=== PATIENT | female | born 1995 | race Caucasian/White ===

== ENCOUNTER 2016-12-18 01:42 | Emergency (ER) | payer MEDICAID ==
--- NOTE | 2016-12-18 02:24 | EDM.PDOC ---
ED HPI GENERAL MEDICAL PROBLEM - General Chief Complaint: Drug or Alcohol Abuse Stated Complaint: [facility] Time Seen by Provider: 12/18/16 01:42 - History of Present Illness INITIAL COMMENTS - FREE TEXT/NARRATIVE: 21-year-old female brought in by EMS who was found unresponsive. Patient is now awake alert oriented x3. The patient according to eye witnesses was acting a little goofy after using some cocaine. She stumbled around and passed out. Initially had some involuntary movements her significant other started CPR. When EMS arrived she was cyanotic she was given a dose of Narcan and immediately woke up. She was brought into the emergency room. 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 She states that she uses marijuana on intermittent basis. This evening after work she had a few drinks and wanted to try some cocaine. The patient's only complaint at this time is that of a significant headache. Headache Pain Score (Numeric/FACES): 7 - Related Data Allergies Allergy/AdvReac Type Severity Reaction Status Date / Time No Known Allergies Allergy Verified 12/18/16 01:46 Past Medical History Respiratory History: Reports: Asthma Musculoskeletal History: Reports: Fracture Psychiatric History: Reports: Anxiety - Past Surgical History HEENT Surgical History: Reports: Tonsillectomy Social & Family History - Tobacco Use Smoking Status *Q: Current Every Day Smoker Years of Tobacco use: 10 Packs/Tins Daily: 0.5 Second Hand Smoke Exposure: No - Alcohol Use Days Per Week of Alcohol Use: 1 Number of Drinks Per Day: 2 Total Drinks Per Week: 2 - Recreational Drug Use Recreational Drug Use: Yes Drug Use in Last 12 Months: Yes Recreational Drug Type: Reports: Cocaine, Methamphetamine Recreational Drug Use Frequency: Binges Recreational Drug Last Use: last week ED ROS GENERAL - Review of Systems Review Of Systems: See Below Constitutional: Reports: no symptoms HEENT: Reports: No symptoms Respiratory: Reports: No Symptoms Cardiovascular: Reports: No symptoms Endocrine: Reports: no symptoms GI/Abdominal: Reports: No symptoms : Reports: no symptoms Musculoskeletal: Reports: no symptoms. Denies: neck pain Neurological: Reports: Headache. Denies: Confusion, Dizziness Psychiatric: Denies: Agitation, Anxiety, Confusion, Depression, Hallucinations, Homicidal ideation, Mood lability, Suicidal ideation ED EXAM, GENERAL - Physical Exam Exam: See Below Exam Limited By: No limitations General Appearance: alert, no apparent distress Eye Exam: bilateral eye: EOMI, normal inspection, PERRL Ears: normal external exam, normal canal, hearing grossly normal, normal TMs Nose: normal inspection, normal mucosa Throat/Mouth: Normal inspection, Normal lips, Normal teeth, Normal gums, Normal oropharynx, Normal voice, No airway compromise Head: atraumatic, normocephalic, other (No obvious traumatic lesion) Neck: normal inspection, supple, non-tender, full range of motion. No: lymphadenopathy (L), lymphadenopathy (R) Respiratory/Chest: no respiratory distress, lungs clear, normal breath sounds Cardiovascular: regular rate, rhythm, no edema, no murmur GI/Abdominal: normal bowel sounds, soft, non tender, no organomegaly, no distention, no abnormal bruit, no mass Back Exam: normal inspection. No: CVA tenderness (L), CVA tenderness (R) Extremities: normal inspection, normal range of motion, non-tender, no pedal edema, normal capillary refill, other (Pelvis is stable) Neurological: alert, oriented, CN II-XII intact, normal cognition, normal gait, normal reflexes, no motor/sensory deficits, other (Cranial nerves II through XII grossly intact the patient is ambulatory without difficulty cerebellar testing is within normal limits all muscle groups in the upper extremities are equal and appropriate deep tendon reflexes the brachial radialis are equal and appropriate bilaterally) EKG INTERPRETATION EKG Date: 12/18/16 Rhythm: other (Normal sinus rhythm with a very subtle sinus arrhythmia age- appropriate) Hilbert: normal P-wave: present QRS: normal ST-T: normal QT: normal DC/PQ Interval: Normal intervals Comparison: NA - no prior EKG Course - Vital Signs Last Recorded V/S: Last Vital Signs Temp 35.9 C 12/18/16 01:46 Pulse 104 H 12/18/16 01:46 Resp 15 12/18/16 01:46 BP 124/81 12/18/16 01:46 Pulse Ox 100 12/18/16 01:46 - Orders/Labs/Meds Orders: Active Orders 24 hr Category Date Time Status EKG Documentation Completion [RC] STAT Care 12/18/16 02:00 Active Head wo Cont [CT] Stat Exams 12/18/16 02:16 Taken Labs: Laboratory Tests 12/18/16 12/18/16 12/18/16 Range/Units 02:24 02:24 02:55 WBC 9.67 (3.98-10.04) K/mm3 RBC 4.68 (3.98-5.22) M/mm3 Hgb 14.2 (11.2-15.7) gm/L Hct 41.7 (34.1-44.9) % MCV 89.1 (79.4-94.8) fl MCH 30.3 (25.6-32.2) pg MCHC 34.1 (32.2-35.5) g/dl RDW Std Deviation 41.4 (36.4-46.3) fL Plt Count 236 (182-369) K/mm3 MPV 10.6 (9.4-12.3) fl Neutrophils % (Manual) 68 H (40-60) % Band Neutrophils % 0 (0-10) % Lymphocytes % (Manual) 27 (20-40) % Atypical Lymphs % 0 % Monocytes % (Manual) 2 (2-10) % Eosinophils % (Manual) 1 (0.7-5.8) % Basophils % (Manual) 2 H (0.1-1.2) Platelet Estimate Adequate Plt Morphology Comment Normal RBC Morph Comment Normal Sodium 141 (136-145) mEq/L Potassium 3.8 (3.5-5.1) mEq/L Chloride 106 (98-107) mEq/L Carbon Dioxide 22 (21-32) mEq/L Anion Gap 16.8 H (5-15) BUN 8 (7-18) mg/dL Creatinine 0.9 (0.55-1.02) mg/dL Est Cr Clr Drug Dosing 84.67 mL/min Estimated GFR (MDRD) > 60 (>60) mL/min BUN/Creatinine Ratio 8.9 L (14-18) Glucose 110 H (74-106) mg/dL Calcium 8.3 L (8.5-10.1) mg/dL Total Bilirubin 0.3 (0.2-1.0) mg/dL AST 34 (15-37) U/L ALT 29 (14-59) U/L Alkaline Phosphatase 58 (46-116) U/L Total Protein 7.6 (6.4-8.2) g/dl Albumin 4.2 (3.4-5.0) g/dl Globulin 3.4 gm/dL Albumin/Globulin Ratio 1.2 (1-2) Urine Color (Yellow) Urine Appearance (Clear) Urine pH (5.0-8.0) Ur Specific [place] (1.005-1.030) Urine Protein (Negative) Urine Glucose (UA) (Negative) Urine Ketones (Negative) Urine Occult Blood (Negative) Urine Nitrite (Negative) Urine Bilirubin (Negative) Urine Urobilinogen (0.2-1.0) Ur Leukocyte Esterase (Negative) Urine RBC (0-5) /hpf Urine WBC (0-5) /hpf Ur Epithelial Cells (0-5) /hpf Urine Bacteria (FEW) /hpf Urine Mucus (FEW) /hpf Urine HCG, Qual Negative (NEGATIVE) Urine Opiates Screen (NEGATIVE) Ur Buprenorphine Scrn (NEGATIVE) Ur Oxycodone Screen (NEGATIVE) Urine Methadone Screen (NEGATIVE) Ur Propoxyphene Screen (NEGATIVE) Ur Barbiturates Screen (NEGATIVE) Ur Tricyclics Screen (NEGATIVE) Ur Phencyclidine Scrn (NEGATIVE) Ur Amphetamine Screen (NEGATIVE) U Methamphetamines Scrn (NEGATIVE) U Benzodiazepines Scrn (NEGATIVE) U Cocaine Metab Screen (NEGATIVE) U Marijuana (THC) Screen (NEGATIVE) Ethyl Alcohol 0.11 (0.00) gm% 12/18/16 12/18/16 Range/Units 02:55 02:55 WBC (3.98-10.04) K/mm3 RBC (3.98-5.22) M/mm3 Hgb (11.2-15.7) gm/L Hct (34.1-44.9) % MCV (79.4-94.8) fl MCH (25.6-32.2) pg MCHC (32.2-35.5) g/dl RDW Std Deviation (36.4-46.3) fL Plt Count (182-369) K/mm3 MPV (9.4-12.3) fl Neutrophils % (Manual) (40-60) % Band Neutrophils % (0-10) % Lymphocytes % (Manual) (20-40) % Atypical Lymphs % % Monocytes % (Manual) (2-10) % Eosinophils % (Manual) (0.7-5.8) % Basophils % (Manual) (0.1-1.2) Platelet Estimate Plt Morphology Comment RBC Morph Comment Sodium (136-145) mEq/L Potassium (3.5-5.1) mEq/L Chloride (98-107) mEq/L Carbon Dioxide (21-32) mEq/L Anion Gap (5-15) BUN (7-18) mg/dL Creatinine (0.55-1.02) mg/dL Est Cr Clr Drug Dosing mL/min Estimated GFR (MDRD) (>60) mL/min BUN/Creatinine Ratio (14-18) Glucose (74-106) mg/dL Calcium (8.5-10.1) mg/dL Total Bilirubin (0.2-1.0) mg/dL AST (15-37) U/L ALT (14-59) U/L Alkaline Phosphatase (46-116) U/L Total Protein (6.4-8.2) g/dl Albumin (3.4-5.0) g/dl Globulin gm/dL Albumin/Globulin Ratio (1-2) Urine Color Yellow (Yellow) Urine Appearance Clear (Clear) Urine pH 6.5 (5.0-8.0) Ur Specific [place] 1.020 (1.005-1.030) Urine Protein Negative (Negative) Urine Glucose (UA) 1+ H (Negative) Urine Ketones Negative (Negative) Urine Occult Blood Negative (Negative) Urine Nitrite Negative (Negative) Urine Bilirubin Negative (Negative) Urine Urobilinogen 0.2 (0.2-1.0) Ur Leukocyte Esterase Trace H (Negative) Urine RBC 0-5 (0-5) /hpf Urine WBC 0-5 (0-5) /hpf Ur Epithelial Cells 0-5 (0-5) /hpf Urine Bacteria Moderate H (FEW) /hpf Urine Mucus Few (FEW) /hpf Urine HCG, Qual (NEGATIVE) Urine Opiates Screen Negative (NEGATIVE) Ur Buprenorphine Scrn Negative (NEGATIVE) Ur Oxycodone Screen Negative (NEGATIVE) Urine Methadone Screen Negative (NEGATIVE) Ur Propoxyphene Screen Negative (NEGATIVE) Ur Barbiturates Screen Negative (NEGATIVE) Ur Tricyclics Screen Negative (NEGATIVE) Ur Phencyclidine Scrn Negative (NEGATIVE) Ur Amphetamine Screen Presumptive positive H (NEGATIVE) U Methamphetamines Scrn Negative (NEGATIVE) U Benzodiazepines Scrn Negative (NEGATIVE) U Cocaine Metab Screen Negative (NEGATIVE) U Marijuana (THC) Screen Presumptive positive H (NEGATIVE) Ethyl Alcohol (0.00) gm% - Re-Assessments/Exams Free Text/Narrative Re-Assessment/Exam: 12/18/16 05:46 Patient has continued to do well with observation she was allowed to go outside with your staff to smoke one time she is ambulatory without any balance problems. She is resting at this time. It was decided best to observe the patient for a while and the patient indeed did coke it should not cause depression of her respirations it is possible that she fell and bumped her head and was possibly knocked out however head injurys do not respond to Narcan. Blood alcohol is 0.11 drug screen positive for methamphetamine and marijuana. 12/18/16 06:18 The patient continues to maintain stability and would like to go home. Her vital signs are stable except for mild tachycardia, she is alert oriented and ambulatory. Departure - Departure Time of Disposition: 06:22 Disposition: Home, Self-Care 01 Clinical Impression: Accidental overdose, Alcohol intoxication, Head injury Additional Instructions: Return to the emergency room with any questions or problems. Followup in the clinic this next week for recheck if needed. No drugs whatsoever. Avoid alcohol. Push lots of fluids. - My Orders Last 24 Hours: My Active Orders 12/18/16 02:00 EKG Documentation Completion [RC] STAT 12/18/16 02:16 Head wo Cont [CT] Stat - Assessment/Plan Last 24 Hours: My Active Orders 12/18/16 02:00 EKG Documentation Completion [RC] STAT 12/18/16 02:16 Head wo Cont [CT] Stat
[2016-12-18 06:43] VITALS: BP 128/69
--- NOTE | 2016-12-18 09:26 | CT ---
Head CT Technique: Multiple axial sections through the brain were obtained. Intravenous contrast was not utilized. Comparison: No previous head CT exam, previous MRI brain dated 08/23/13 is available. Findings: Ventricles along with basal cisterns and sulci over the convexities are within normal limits for the patient's age. No abnormal parenchymal densities are seen. No evidence of intracranial hemorrhage. No midline shift or mass effect is seen. Bone window settings were reviewed which show the visualized sinuses to appear clear. No discrete calvarial abnormality is seen. Impression: 1. No abnormality is identified on noncontrast head CT study. No significant change appreciated from prior MRI brain. Diagnostic code #1 I agree with preliminary report issued by [id number] (preliminary report dictated on 12/18/16, 4:17 AM Central Time)
== END 2016-12-18 06:42 | disposition home or self-care (01) ==
LOC: JD.ED 01:42 → SUPCPDRO 01:42 → JD.ED 06:42
DX: T40.5X1A Poisoning by cocaine, accidental (unintentional), initial encounter (principal); F10.129 Alcohol abuse with intoxication, unspecified; S09.90XA Unspecified injury of head, initial encounter; W17.89XA Other fall from one level to another, initial encounter; F12.90 Cannabis use, unspecified, uncomplicated; F17.200 Nicotine dependence, unspecified, uncomplicated; J45.909 Unspecified asthma, uncomplicated; F41.9 Anxiety disorder, unspecified
CPT/HCPCS: 36415; 70450; 80053; 80306; 81001; 81025; 85025; 93005; 99285; G0480

== ENCOUNTER 2017-10-25 10:04 | Inpatient (IN) | payer MEDICAID ==
[2017-10-25] MEDS ORDERED: Lidocaine 1% 50 ML MDV INJECT PRN (10:57)
[2017-10-25] MEDS ORDERED: Ondansetron 4 MG/2 ML SDV IVPUSH PRN (10:57)
[2017-10-25] MEDS ORDERED: Nalbuphine 20 MG/1 ML Amp IVPUSH PRN (10:57)
[2017-10-25] MEDS ORDERED: Oxytocin/Lactated Ringers 10 UNIT/1,000 ML BAG IV SCH ×2 (11:00)
[2017-10-25] MEDS: Lactated Ringers 1,000 ML IV SCH (11:20)
--- NOTE | 2017-10-25 12:16 | PCM.LDHP ---
L&D History of Present Illness - General Date of Service: 10/25/17 Admit Problem/Dx: Patient Status Order with Admit Dx/Problem 10/25/17 10:57 Patient Status [ADT] Routine Admission Diagnosis/Problem Admission Diagnosis/Problem Normal labor Source of Information: Patient History Limitations: Reports: No Limitations - History of Present Illness Introduction:: Patient is a 22 y/o at 40 6/7 wks presents for IOL for dates. Doing well since last seen in clinic. No contractions. No LOF or VB. Notes good FM from baby. - Related Data Allergies/Adverse Reactions: Allergies Allergy/AdvReac Type Severity Reaction Status Date / Time No Known Allergies Allergy Verified 10/25/17 10:57 Home Medications: Home Meds Acyclovir 400 mg PO BID 10/25/17 [History] Vit W-Ca,Fe,FA(<1 mg) [ Vitamins] 1 tab PO DAILY 10/25/17 [ History] hydrOXYzine Pamoate [Vistaril] 25 - 50 mg PO TID PRN 10/25/17 [History] Past Medical History Respiratory History: Reports: Asthma Genitourinary History: Reports: STD : 1 LMP (Approximate): Musculoskeletal History: Reports: Fracture Psychiatric History: Reports: Anxiety, Depression - Infectious Disease History Infectious Disease History: Reports: Herpes - Past Surgical History HEENT Surgical History: Reports: Tonsillectomy Social & Family History - Tobacco Use Smoking Status *Q: Current Every Day Smoker Years of Tobacco use: 10 Packs/Tins Daily: 0.5 Second Hand Smoke Exposure: No - Alcohol Use Alcohol Use History: No - Recreational Drug Use Recreational Drug Use: Yes Drug Use in Last 12 Months: Yes Recreational Drug Type: Reports: Marijuana/Hashish, Methamphetamine (Last use in 2014) H&P Review of Systems - Review of Systems: Review Of Systems: See Below General: Reports: No Symptoms Pulmonary: Reports: No Symptoms Cardiovascular: Reports: No Symptoms Gastrointestinal: Reports: No Symptoms Genitourinary: Reports: No Symptoms Musculoskeletal: Reports: No Symptoms Psychiatric: Reports: No Symptoms Neurological: Reports: No Symptoms L&D Exam - Exam Exam: See Below - Vital Signs Weight: 90.22 kg - OB Specific Contraction Intensity: Irritability Movement: Active Heart Tones: Present Heart Tones per Min: 150 Heart Rate (FHR) Variability: Moderate (6-25 bmp) Presentation: Right Occiput Posterior (ROP) - Grimes Score Grimes Score Cervix Position: Midposition Grimes Score Consistency: Soft Grimes Score Effacement: >80% Grimes Score Dilation: 1-2 cm Grimes Score 's Station: -2 Grimes Score Total: 8 - Exam General: Alert, Oriented, Cooperative Lungs: Clear to Auscultation, Normal Respiratory Effort Cardiovascular: Regular Rate, Regular Rhythm GI/Abdominal Exam: Soft, Non-Tender Genitourinary: Normal external exam Back Exam: Normal Inspection Extremities: Normal Inspection Skin: Warm, Dry, Intact - Patient Data Lab Results Last 24 hrs: Laboratory Results - last 24 hr 10/25/17 Range/Units 11:17 WBC 10.35 H (3.98-10.04) K/mm3 RBC 3.78 L (3.98-5.22) M/mm3 Hgb 10.9 L (11.2-15.7) gm/L Hct 32.6 L (34.1-44.9) % MCV 86.2 (79.4-94.8) fl MCH 28.8 (25.6-32.2) pg MCHC 33.4 (32.2-35.5) g/dl RDW Std Deviation 41.0 (36.4-46.3) fL Plt Count 124 L (182-369) K/mm3 MPV 11.4 (9.4-12.3) fl Neut % (Auto) 68.2 (34.0-71.1) % Lymph % (Auto) 21.4 (19.3-51.7) % [place] % (Auto) 8.3 (4.7-12.5) % Eos % (Auto) 1.3 (0.7-5.8) Baso % (Auto) 0.3 (0.1-1.2) % Neut # (Auto) 7.06 H (1.56-6.13) K/mm3 Lymph # (Auto) 2.22 (1.18-3.74) K/mm3 [place] # (Auto) 0.86 H (0.24-0.36) K/mm3 Eos # (Auto) 0.13 (0.04-0.36) K/mm3 Baso # (Auto) 0.03 (0.01-0.08) K/mm3 Result Diagrams: 10/25/17 11:17 - Problem List (1) Post-dates SNOMED Code(s): 31541604 ICD Code: O48.0 - POST-TERM Status: Acute Current Visit: Yes Qualifiers: Post-term type: 40-42 weeks gestation Qualified Code(s): O48.0 - Post-term (2) History of asthma SNOMED Code(s): 328933662 ICD Code: Z87.09 - PERSONAL HISTORY OF OTHER DISEASES OF THE RESPIRATORY SYSTEM Status: Acute Current Visit: Yes (3) Rh negative state in antepartum period SNOMED Code(s): 434021280 ICD Code: O09.899 - SUPERVISION OF OTHER HIGH RISK PREGNANCIES, UNSP TRIMESTER Status: Acute Current Visit: Yes (4) Anxiety and depression SNOMED Code(s): 710688027 ICD Code: F41.8 - OTHER SPECIFIED ANXIETY DISORDERS Status: Acute Current Visit: Yes (5) History of drug use SNOMED Code(s): 203171649 ICD Code: Z87.898 - PERSONAL HISTORY OF OTHER SPECIFIED CONDITIONS Status: Acute Current Visit: Yes Problem List Initiated/Reviewed/Updated: Yes Orders Last 24hrs: Active Orders 24 hr Category Date Time Status Patient Status [ADT] Routine ADT 10/25/17 10:57 Active Activity as Tolerated [RC] PFP Care 10/25/17 10:57 Active Communication Order [RC] ASDIRECTED Care 10/25/17 10:57 Active Notify Provider [RC] PFP Care 10/25/17 10:57 Active Notify Provider [RC] PRN Care 10/25/17 10:57 Active Vital Signs [RC] PER UNIT ROUTINE Care 10/25/17 10:57 Active Regular Diet [DIET] Diet 10/25/17 Lunch Active DRUG SCREEN, URINE [URCHEM] Routine Lab 10/25/17 12:15 Uncollected TYPE AND SCREEN [BBK] Stat Lab 10/25/17 11:17 Received Lactated Ringers [Ringers, Lactated] 1,000 ml Med 10/25/17 11:00 Active IV ASDIRECTED Lidocaine 1% [Xylocaine 1%] Med 10/25/17 10:57 Active 50 ml INJECT ONETIME PRN Nalbuphine [Nubain] Med 10/25/17 10:57 Active 10 mg IVPUSH Q2H PRN Ondansetron [Zofran] Med 10/25/17 10:57 Active 4 mg IVPUSH Q4H PRN Oxytocin/Lactated Ringers [Pitocin in LR 10 Units/1,000 Med 10/25/17 11:00 Active ML] 10 unit in 1,000 ml IV .CONTINUOUS Oxytocin/Lactated Ringers [Pitocin in LR 10 Units/1,000 Med 10/25/17 11:00 Active ML] 10 unit in 1,000 ml IV TITRATE Electronic Heart Tones Ext w TOCO [WOMSER] Oth 10/25/17 10:57 Ordered Routine Electronic Heart Tones Internal [WOMSER] Per Unit Oth 10/25/17 10:57 Ordered Routine Peripheral IV Insertion Adult [OM.PC] Routine Oth 10/25/17 10:57 Ordered Resuscitation Status Routine Resus Stat 10/25/17 10:57 Ordered Medication Orders Lactated Ringer's (Ringers, Lactated) 1,000 mls @ 100 mls/hr IV ASDIRECTED JAY Last Admin: 10/25/17 11:20 Dose: 100 mls/hr Oxytocin/Lactated Ringer's (Pitocin In Lr 10 Units/1,000 Ml) 10 unit in 1,000 mls @ 12 mls/hr IV TITRATE JAY; 2 MUNITS/MIN PRN Reason: Protocol Last Admin: 10/25/17 11:25 Dose: 2 munits/min, 12 mls/hr Oxytocin/Lactated Ringer's (Pitocin In Lr 10 Units/1,000 Ml) 10 unit in 1,000 mls @ 500 mls/hr IV .CONTINUOUS JAY Lidocaine HCl (Xylocaine 1%) 50 ml INJECT ONETIME PRN PRN Reason: perineal repair Nalbuphine HCl (Nubain) 10 mg IVPUSH Q2H PRN PRN Reason: Pain (moderate 4-6) Ondansetron HCl (Zofran) 4 mg IVPUSH Q4H PRN PRN Reason: Nausea/Vomiting Assessment/Plan Comment:: Patient is a 22 y/o at 40 6/7 wks who presents for IOL for dates * CBC and T&S * Given good starting point with cervical exam will proceed with pitocin for IOL and AROM when able * Pain management per patient preference * UDS on admission given history of drug use (last in 2014, has had negative testing in ). Cord segment after delivery * Anticipate
[2017-10-25] MEDS ORDERED: Bupivacaine/fentaNYL/NS 100 ML Bag EPIDUR SCH (14:00)
[2017-10-25] MEDS ORDERED: diphenhydrAMINE 50 MG/ML SDV IVPUSH PRN (14:00)
[2017-10-25] MEDS ORDERED: ePHEDrine 50 MG/ML SDV IVPUSH PRN (14:00)
[2017-10-25] MEDS ORDERED: fentaNYL 100 MCG/2 ML SDV EPIDUR PRN (14:00)
--- NOTE | 2017-10-25 19:03 | PCM.PREANE ---
Preanesthetic Assessment - Anesthesia/Transfusion/Family Hx Anesthesia History: Prior Anesthesia Without Reaction Family History of Anesthesia Reaction: No Transfusion History: No Prior Transfusion(s) - Review of Systems General: No Symptoms Pulmonary: No Symptoms Cardiovascular: No Symptoms Gastrointestinal: No Symptoms Neurological: No Symptoms Other: Reports: None - Physical Assessment Pulse: 98 O2 Sat by Pulse Oximetry: 100 Respiratory Rate: 17 Blood Pressure: 118/69 Temperature: 36.3 C Vital Signs: Last Vital Signs Temp 36.3 C 10/25/17 10:57 Pulse 91 10/25/17 10:57 Resp 17 10/25/17 10:57 BP 118/69 10/25/17 10:57 Pulse Ox 100 10/25/17 10:57 Height: 1.63 m Weight: 90.22 kg ASA Class: 2 Mental Status: Alert & Oriented x3 Airway Class: Mallampati = 1 Dentition: Reports: Normal Dentition Thyro-Mental Finger Breadths: 3 Mouth Opening Finger Breadths: 3 ROM/Head Extension: Full Lungs: Clear to Auscultation, Normal Respiratory Effort Cardiovascular: Regular Rate, Regular Rhythm - Lab Values: Laboratory Last Values WBC 10.35 K/mm3 (3.98-10.04) H 10/25/17 11:17 RBC 3.78 M/mm3 (3.98-5.22) L 10/25/17 11:17 Hgb 10.9 gm/L (11.2-15.7) L 10/25/17 11:17 Hct 32.6 % (34.1-44.9) L 10/25/17 11:17 MCV 86.2 fl (79.4-94.8) 10/25/17 11:17 MCH 28.8 pg (25.6-32.2) 10/25/17 11:17 MCHC 33.4 g/dl (32.2-35.5) 10/25/17 11:17 RDW Std Deviation 41.0 fL (36.4-46.3) 10/25/17 11:17 Plt Count 124 K/mm3 (182-369) L 10/25/17 11:17 MPV 11.4 fl (9.4-12.3) 10/25/17 11:17 Neut % (Auto) 68.2 % (34.0-71.1) 10/25/17 11:17 Lymph % (Auto) 21.4 % (19.3-51.7) 10/25/17 11:17 [place] % (Auto) 8.3 % (4.7-12.5) 10/25/17 11:17 Eos % (Auto) 1.3 (0.7-5.8) 10/25/17 11:17 Baso % (Auto) 0.3 % (0.1-1.2) 10/25/17 11:17 Neut # (Auto) 7.06 K/mm3 (1.56-6.13) H 10/25/17 11:17 Lymph # (Auto) 2.22 K/mm3 (1.18-3.74) 10/25/17 11:17 [place] # (Auto) 0.86 K/mm3 (0.24-0.36) H 10/25/17 11:17 Eos # (Auto) 0.13 K/mm3 (0.04-0.36) 10/25/17 11:17 Baso # (Auto) 0.03 K/mm3 (0.01-0.08) 10/25/17 11:17 Urine Opiates Screen Negative (NEGATIVE) 10/25/17 15:00 Ur Buprenorphine Scrn Negative (NEGATIVE) 10/25/17 15:00 Ur Oxycodone Screen Negative (NEGATIVE) 10/25/17 15:00 Urine Methadone Screen Negative (NEGATIVE) 10/25/17 15:00 Ur Propoxyphene Screen Negative (NEGATIVE) 10/25/17 15:00 Ur Barbiturates Screen Negative (NEGATIVE) 10/25/17 15:00 Ur Tricyclics Screen Negative (NEGATIVE) 10/25/17 15:00 Ur Phencyclidine Scrn Negative (NEGATIVE) 10/25/17 15:00 Ur Amphetamine Screen Negative (NEGATIVE) 10/25/17 15:00 U Methamphetamines Scrn Negative (NEGATIVE) 10/25/17 15:00 U Benzodiazepines Scrn Negative (NEGATIVE) 10/25/17 15:00 U Cocaine Metab Screen Negative (NEGATIVE) 10/25/17 15:00 U Marijuana (THC) Screen Negative (NEGATIVE) 10/25/17 15:00 Blood Type B NEGATIVE 10/25/17 11:17 Gel Antibody Screen Positive 10/25/17 11:17 - Allergies Allergies/Adverse Reactions: Allergies Allergy/AdvReac Type Severity Reaction Status Date / Time No Known Allergies Allergy Verified 10/25/17 10:57 - Anesthesia Plan Pre-Op Medication Ordered: None - Acknowledgements Anesthesia Type Planned: Epidural Pt an Appropriate Candidate for the Planned Anesthesia: Yes Alternatives and Risks of Anesthesia Discussed w Pt/Guardian: Yes Pt/Guardian Understands and Agrees with Anesthesia Plan: Yes PreAnesthesia Questionnaire Respiratory History: Reports: Asthma Gastrointestinal History: Reports: GERD Genitourinary History: Reports: STD [employer] History: Reports: Other (See Below) Other OB/BYN History: Hx of genital herpes and Chlamydia Musculoskeletal History: Reports: Fracture Other Musculoskeletal History: right arm Psychiatric History: Reports: Anxiety, Depression - Infectious Disease History Infectious Disease History: Reports: Herpes - Past Surgical History HEENT Surgical History: Reports: Tonsillectomy - SUBSTANCE USE Smoking Status *Q: Current Every Day Smoker Tobacco Use Within Last Twelve Months: Cigarettes Second Hand Smoke Exposure: No Days Per Week of Alcohol Use: 1 Number of Drinks Per Day: 2 Total Drinks Per Week: 2 Recreational Drug Use History: Yes Recreational Drug Type: Reports: Marijuana/Hashish, Methamphetamine (Last use in 2014) Recreational Drug Last Use: last week - HOME MEDS Home Medications: Home Meds Acyclovir 400 mg PO BID 10/25/17 [History] Vit W-Ca,Fe,FA(<1 mg) [ Vitamins] 1 tab PO DAILY 10/25/17 [ History] hydrOXYzine Pamoate [Vistaril] 25 - 50 mg PO TID PRN 10/25/17 [History] - CURRENT (IN HOUSE) MEDS Current Meds: Current Medications Diphenhydramine HCl (Benadryl) 25 mg IVPUSH Q6H PRN PRN Reason: Itching Ephedrine Sulfate (Ephedrine Sulfate) 5 mg IVPUSH ASDIRECTED PRN PRN Reason: HYPOTENTSION Fentanyl (Sublimaze) 100 mcg EPIDUR Q3H PRN PRN Reason: PAIN Last Admin: 10/25/17 18:54 Dose: 100 mcg Fentanyl/Bupivacaine HCl (Fentanyl/Bupivacaine/Ns 2 Mcg-0.125% 100 Ml) 100 ml EPIDUR ASDIRECTED JAY Last Admin: 10/25/17 18:55 Dose: 100 ml Lactated Ringer's (Ringers, Lactated) 1,000 mls @ 100 mls/hr IV ASDIRECTED JAY Last Admin: 10/25/17 11:20 Dose: 100 mls/hr Oxytocin/Lactated Ringer's (Pitocin In Lr 10 Units/1,000 Ml) 10 unit in 1,000 mls @ 12 mls/hr IV TITRATE JAY; 2 MUNITS/MIN PRN Reason: Protocol Last Titration: 10/25/17 18:00 Dose: 0 munits/min, 0 mls/hr Oxytocin/Lactated Ringer's (Pitocin In Lr 10 Units/1,000 Ml) 10 unit in 1,000 mls @ 500 mls/hr IV .CONTINUOUS JAY Lidocaine HCl (Xylocaine 1%) 50 ml INJECT ONETIME PRN PRN Reason: perineal repair Nalbuphine HCl (Nubain) 10 mg IVPUSH Q2H PRN PRN Reason: Pain (moderate 4-6) Ondansetron HCl (Zofran) 4 mg IVPUSH Q4H PRN PRN Reason: Nausea/Vomiting
--- NOTE | 2017-10-25 20:06 | PCM.PNLD ---
Labor Progress Note - VS & Meds Vital Signs: Last Vital Signs Temp 36.3 C 10/25/17 19:03 Pulse 98 10/25/17 19:03 Resp 17 10/25/17 19:03 BP 118/69 10/25/17 19:03 Pulse Ox 100 10/25/17 19:03 Active Medications: Current Medications Diphenhydramine HCl (Benadryl) 25 mg IVPUSH Q6H PRN PRN Reason: Itching Ephedrine Sulfate (Ephedrine Sulfate) 5 mg IVPUSH ASDIRECTED PRN PRN Reason: HYPOTENTSION Fentanyl (Sublimaze) 100 mcg EPIDUR Q3H PRN PRN Reason: PAIN Last Admin: 10/25/17 18:54 Dose: 100 mcg Fentanyl/Bupivacaine HCl (Fentanyl/Bupivacaine/Ns 2 Mcg-0.125% 100 Ml) 100 ml EPIDUR ASDIRECTED JAY Last Admin: 10/25/17 18:55 Dose: 100 ml Lactated Ringer's (Ringers, Lactated) 1,000 mls @ 100 mls/hr IV ASDIRECTED JAY Last Admin: 10/25/17 11:20 Dose: 100 mls/hr Oxytocin/Lactated Ringer's (Pitocin In Lr 10 Units/1,000 Ml) 10 unit in 1,000 mls @ 12 mls/hr IV TITRATE JAY; 2 MUNITS/MIN PRN Reason: Protocol Last Titration: 10/25/17 18:00 Dose: 0 munits/min, 0 mls/hr Oxytocin/Lactated Ringer's (Pitocin In Lr 10 Units/1,000 Ml) 10 unit in 1,000 mls @ 500 mls/hr IV .CONTINUOUS JAY Lidocaine HCl (Xylocaine 1%) 50 ml INJECT ONETIME PRN PRN Reason: perineal repair Nalbuphine HCl (Nubain) 10 mg IVPUSH Q2H PRN PRN Reason: Pain (moderate 4-6) Ondansetron HCl (Zofran) 4 mg IVPUSH Q4H PRN PRN Reason: Nausea/Vomiting - Uterine Contractions Uterine Monitoring Mode: External [place] Contraction Intensity: Moderate to Strong - Monitoring Monitor Mode: External Ultrasound Heart Rate (FHR) Baseline: 135 Heart Rate (FHR) Variability: Moderate (6-25 bmp) Accelerations: Present, 15x15 Decelerations: None Strip Review: Category I - Vaginal Exam Dilation (cm): 3-4 Effacement (Percent): 80 Station: -2 Cervical Position: Midposition - Labor Progress (Free Text) Labor Progress: Patient doing well. On 16 of pitocin. Not feeling much for contractions. AROM performed with release of scant amount of clear fluid
--- NOTE | 2017-10-25 20:14 | PCM.PNLD ---
Labor Progress Note - VS & Meds Vital Signs: Last Vital Signs Temp 36.3 C 10/25/17 19:03 Pulse 98 10/25/17 19:03 Resp 17 10/25/17 19:03 BP 118/69 10/25/17 19:03 Pulse Ox 100 10/25/17 19:03 Active Medications: Current Medications Diphenhydramine HCl (Benadryl) 25 mg IVPUSH Q6H PRN PRN Reason: Itching Ephedrine Sulfate (Ephedrine Sulfate) 5 mg IVPUSH ASDIRECTED PRN PRN Reason: HYPOTENTSION Fentanyl (Sublimaze) 100 mcg EPIDUR Q3H PRN PRN Reason: PAIN Last Admin: 10/25/17 18:54 Dose: 100 mcg Fentanyl/Bupivacaine HCl (Fentanyl/Bupivacaine/Ns 2 Mcg-0.125% 100 Ml) 100 ml EPIDUR ASDIRECTED JAY Last Admin: 10/25/17 18:55 Dose: 100 ml Lactated Ringer's (Ringers, Lactated) 1,000 mls @ 100 mls/hr IV ASDIRECTED JAY Last Admin: 10/25/17 11:20 Dose: 100 mls/hr Oxytocin/Lactated Ringer's (Pitocin In Lr 10 Units/1,000 Ml) 10 unit in 1,000 mls @ 12 mls/hr IV TITRATE JAY; 2 MUNITS/MIN PRN Reason: Protocol Last Titration: 10/25/17 18:00 Dose: 0 munits/min, 0 mls/hr Oxytocin/Lactated Ringer's (Pitocin In Lr 10 Units/1,000 Ml) 10 unit in 1,000 mls @ 500 mls/hr IV .CONTINUOUS JAY Lidocaine HCl (Xylocaine 1%) 50 ml INJECT ONETIME PRN PRN Reason: perineal repair Nalbuphine HCl (Nubain) 10 mg IVPUSH Q2H PRN PRN Reason: Pain (moderate 4-6) Ondansetron HCl (Zofran) 4 mg IVPUSH Q4H PRN PRN Reason: Nausea/Vomiting - Uterine Contractions Uterine Monitoring Mode: External [place] Contraction Intensity: Moderate to Strong - Monitoring Monitor Mode: External Ultrasound Heart Rate (FHR) Baseline: 135 Heart Rate (FHR) Variability: Moderate (6-25 bmp) Accelerations: Present, 15x15 Decelerations: None Strip Review: Category I - Vaginal Exam Dilation (cm): 8-9 Effacement (Percent): 90 Station: 0 Cervical Position: Anterior - Labor Progress (Free Text) Labor Progress: Patient doing well. After AROM pitocin discontinued completely due to increasing contraction strength. Received epidural about 1 hour ago. Has made extremely good change. Will re-assess again in another 1-2 hours
[2017-10-26] MEDS ORDERED: Misoprostol 200 MCG Tab ONE (00:19)
[2017-10-26] MEDS ORDERED: Misoprostol 200 MCG Tab PO STA (00:19)
[2017-10-26] MEDS ORDERED: Methylergonovine 0.2 MG/1 ML Amp ONE (00:21)
[2017-10-26] MEDS ORDERED: Methylergonovine 0.2 MG/1 ML Amp IM STA (00:21)
[2017-10-26] MEDS: Lactated Ringers 1,000 ML IV STA ×2 (00:30→00:49)
[2017-10-26] MEDS: Lactated Ringers 1,000 ML IV SCH (00:50)
--- NOTE | 2017-10-26 00:57 | PCM.DEL ---
L & D Note - General Info Date of Service: 10/26/17 - Delivery Note Labor: Induced by ARM, Induced by Oxytocin Delivery Outcome: Livebirth Infant Delivery Method: Spontaneous Vaginal Delivery-Single Infant Delivery Mode: Spontaneous Presentation: Left Occiput Anterior (LACIE) Nuchal Cord: None Anesthesia Type: Epidural Amniotic Fluid Description: Clear Episiotomy Type: None Laceration: 2nd Degree, Labial (bilateral ) Suture type: Vicryl Suture size: 2-0 Placenta: Intact, Spontaneous Cord: 3 Vessels Estimated Blood Loss: 750 Resuscitation Needed: Yes [place]: Suctioned, Bulb Syringe, Stimulated, Warmed, [place] Used Score 1 min: 8 Score 5 min: 9 Delivery Comments (Free Text/Narrative):: Patient found to be complete and began pushing. With maternal pushing effort head delivered from an LACIE presentation. No nuchal cord present. With gentle downward traction the shoulders and body delivered. Infant placed on maternal abdomen. Cord clamped and cut. Immediately after delivery of baby there was fairly rapid bleeding from the uterus. The placenta was quickly delivered. Poor uterine tone recognized. Patient given 600 mcg of buccal cytotec and also 0.2 mg of IM methergine. Those medications in combination with pitocin and aggressive fundal massage did eventually lead to resolution of bleeding. Inspection of the perineum showed two small bilateral labial tears which were repaired with a 2-0 vicryl in a running fashion - Patient Data Vitals - Most Recent: Last Vital Signs Temp 36.3 C 10/25/17 19:03 Pulse 98 10/25/17 19:03 Resp 17 10/25/17 19:03 BP 118/69 10/25/17 19:03 Pulse Ox 100 10/25/17 19:03 Weight - Most Recent: 90.22 kg Lab Results Last 24 Hours: Laboratory Results - last 24 hr 10/25/17 10/25/17 10/25/17 Range/Units 11:17 11:17 15:00 WBC 10.35 H (3.98-10.04) K/mm3 RBC 3.78 L (3.98-5.22) M/mm3 Hgb 10.9 L (11.2-15.7) gm/L Hct 32.6 L (34.1-44.9) % MCV 86.2 (79.4-94.8) fl MCH 28.8 (25.6-32.2) pg MCHC 33.4 (32.2-35.5) g/dl RDW Std Deviation 41.0 (36.4-46.3) fL Plt Count 124 L (182-369) K/mm3 MPV 11.4 (9.4-12.3) fl Neut % (Auto) 68.2 (34.0-71.1) % Lymph % (Auto) 21.4 (19.3-51.7) % [place] % (Auto) 8.3 (4.7-12.5) % Eos % (Auto) 1.3 (0.7-5.8) Baso % (Auto) 0.3 (0.1-1.2) % Neut # (Auto) 7.06 H (1.56-6.13) K/mm3 Lymph # (Auto) 2.22 (1.18-3.74) K/mm3 [place] # (Auto) 0.86 H (0.24-0.36) K/mm3 Eos # (Auto) 0.13 (0.04-0.36) K/mm3 Baso # (Auto) 0.03 (0.01-0.08) K/mm3 Urine Opiates Screen Negative (NEGATIVE) Ur Buprenorphine Scrn Negative (NEGATIVE) Ur Oxycodone Screen Negative (NEGATIVE) Urine Methadone Screen Negative (NEGATIVE) Ur Propoxyphene Screen Negative (NEGATIVE) Ur Barbiturates Screen Negative (NEGATIVE) Ur Tricyclics Screen Negative (NEGATIVE) Ur Phencyclidine Scrn Negative (NEGATIVE) Ur Amphetamine Screen Negative (NEGATIVE) U Methamphetamines Scrn Negative (NEGATIVE) U Benzodiazepines Scrn Negative (NEGATIVE) U Cocaine Metab Screen Negative (NEGATIVE) U Marijuana (THC) Screen Negative (NEGATIVE) Blood Type B NEGATIVE Gel Antibody Screen Positive Med Orders - Current: Current Medications Diphenhydramine HCl (Benadryl) 25 mg IVPUSH Q6H PRN PRN Reason: Itching Ephedrine Sulfate (Ephedrine Sulfate) 5 mg IVPUSH ASDIRECTED PRN PRN Reason: HYPOTENTSION Fentanyl (Sublimaze) 100 mcg EPIDUR Q3H PRN PRN Reason: PAIN Last Admin: 10/25/17 18:54 Dose: 100 mcg Fentanyl/Bupivacaine HCl (Fentanyl/Bupivacaine/Ns 2 Mcg-0.125% 100 Ml) 100 ml EPIDUR ASDIRECTED JAY Last Admin: 10/25/17 18:55 Dose: 100 ml Lactated Ringer's (Ringers, Lactated) 1,000 mls @ 100 mls/hr IV ASDIRECTED JAY Last Admin: 10/26/17 00:50 Dose: 100 mls/hr Oxytocin/Lactated Ringer's (Pitocin In Lr 10 Units/1,000 Ml) 10 unit in 1,000 mls @ 12 mls/hr IV TITRATE JAY; 2 MUNITS/MIN PRN Reason: Protocol Last Titration: 10/25/17 22:55 Dose: 2 munits/min, 12 mls/hr Oxytocin/Lactated Ringer's (Pitocin In Lr 10 Units/1,000 Ml) 10 unit in 1,000 mls @ 500 mls/hr IV .CONTINUOUS AJY Last Admin: 10/26/17 00:52 Dose: 500 mls/hr Lactated Ringer's (Ringers, Lactated) 1,000 mls @ 999 mls/hr IV STAT STA Stop: 10/26/17 01:36 Last Admin: 10/26/17 00:49 Dose: 999 mls/hr Lidocaine HCl (Xylocaine 1%) 50 ml INJECT ONETIME PRN PRN Reason: perineal repair Nalbuphine HCl (Nubain) 10 mg IVPUSH Q2H PRN PRN Reason: Pain (moderate 4-6) Ondansetron HCl (Zofran) 4 mg IVPUSH Q4H PRN PRN Reason: Nausea/Vomiting Discontinued Medications Methylergonovine Maleate (Methergine) Confirm Administered Dose 0.2 mg .ROUTE .STK-MED ONE Stop: 10/26/17 00:22 Last Admin: 10/26/17 00:40 Dose: Not Given Methylergonovine Maleate (Methergine) 0.2 mg IM NOW STA Stop: 10/26/17 00:22 Last Admin: 10/26/17 00:21 Dose: 0.2 mg Misoprostol (Cytotec) Confirm Administered Dose 600 mcg .ROUTE .STK-MED ONE Stop: 10/26/17 00:20 Last Admin: 10/26/17 00:40 Dose: Not Given Misoprostol (Cytotec) 600 mcg PO NOW STA Stop: 10/26/17 00:20 Last Admin: 10/26/17 00:19 Dose: 600 mcg Tranexamic Acid (Cyklokapron) Confirm Administered Dose 1,000 mg .ROUTE .STK- MED ONE Stop: 10/26/17 00:30 Last Admin: 10/26/17 00:40 Dose: Not Given - Problem List & Annotations (1) Post-dates SNOMED Code(s): 23932965 Code(s): O48.0 - POST-TERM Status: Acute Current Visit: Yes Qualifiers: Post-term type: 40-42 weeks gestation Qualified Code(s): O48.0 - Post-term (2) History of asthma SNOMED Code(s): 955567748 Code(s): Z87.09 - PERSONAL HISTORY OF OTHER DISEASES OF THE RESPIRATORY SYSTEM Status: Acute Current Visit: Yes (3) Rh negative state in antepartum period SNOMED Code(s): 189678441 Code(s): O09.899 - SUPERVISION OF OTHER HIGH RISK PREGNANCIES, UNS TRIMESTER Status: Acute Current Visit: Yes (4) Anxiety and depression SNOMED Code(s): 727905876 Code(s): F41.8 - OTHER SPECIFIED ANXIETY DISORDERS Status: Acute Current Visit: Yes (5) History of drug use SNOMED Code(s): 666073775 Code(s): Z87.898 - PERSONAL HISTORY OF OTHER SPECIFIED CONDITIONS Status: Acute Current Visit: Yes (6) Vaginal delivery SNOMED Code(s): 439753547 Code(s): O80 - ENCOUNTER FOR FULL-TERM UNCOMPLICATED DELIVERY Status: Acute Current Visit: Yes (7) hemorrhage SNOMED Code(s): 04715388 Code(s): O72.1 - OTHER IMMEDIATE HEMORRHAGE Status: Acute Current Visit: Yes Qualifiers: hemorrhage type: other immediate Qualified Code(s): O72.1 - Other immediate hemorrhage - Problem List Review Problem List Initiated/Reviewed/Updated: Yes - My Orders Last 24 Hours: My Active Orders 10/25/17 10:57 Patient Status [ADT] Routine Activity as Tolerated [RC] PFP Communication Order [RC] ASDIRECTED Notify Provider [RC] PFP Notify Provider [RC] PRN Vital Signs [RC] PER UNIT ROUTINE Lidocaine 1% [Xylocaine 1%] 50 ml INJECT ONETIME PRN Nalbuphine [Nubain] 10 mg IVPUSH Q2H PRN Ondansetron [Zofran] 4 mg IVPUSH Q4H PRN Electronic Heart Tones Ext w TOCO [WOMSER] Routine Electronic Heart Tones Internal [WOMSER] Per Unit Routine Peripheral IV Insertion Adult [OM.PC] Routine Resuscitation Status Routine 10/25/17 11:00 Lactated Ringers [Ringers, Lactated] 1,000 ml IV ASDIRECTED Oxytocin/Lactated Ringers [Pitocin in LR 10 Units/1,000 ML] 10 unit in 1,000 ml IV .CONTINUOUS Oxytocin/Lactated Ringers [Pitocin in LR 10 Units/1,000 ML] 10 unit in 1,000 ml IV TITRATE 10/25/17 11:17 ANTIBODY IDENTIFICATION [BBK] Stat TYPE AND SCREEN [BBK] Stat 10/25/17 Lunch Regular Diet [DIET] 10/26/17 00:36 Lactated Ringers [Ringers, Lactated] 1,000 ml IV STAT - Assessment Assessment:: 22 y/o G1 now P1001 PPD#0 from at 41 0/7 wks - Plan Plan:: * Routine cares * Encourage breast feeding * Cord segment collected * Will assess blood type to see if Rhogam indicated * Discharge home in 1-2 days
[2017-10-26] MEDS ORDERED: Docusate Sodium 100 MG Cap PO PRN (02:08)
[2017-10-26] MEDS ORDERED: Witch Hazel Medicated Pads 100/Jar TOP PRN (02:08)
[2017-10-26] MEDS ORDERED: Acetaminophen 325 MG Tab PO PRN (02:08)
[2017-10-26] MEDS ORDERED: Benzocaine/Menthol 20%-0.5% Spray 56 GM Canister TOP PRN (02:08)
[2017-10-26] MEDS ORDERED: Lanolin 100% Cream 7 GM Tube TOP PRN (02:08)
[2017-10-26] MEDS: Ibuprofen 600 MG Tab PO PRN ×2 (03:10→19:53)
--- NOTE | 2017-10-26 12:32 | PCM48HPAN ---
Post Anesthesia Note - EVALUATION WITHIN 48HRS OF ANESTHETIC Vital Signs in Normal Range: Yes Patient Participated in Evaluation: Yes Respiratory Function Stable: Yes Airway Patent: Yes Cardiovascular Function Stable: Yes Hydration Status Stable: Yes Pain Control Satisfactory: Yes Nausea and Vomiting Control Satisfactory: Yes Mental Status Recovered: Yes
[2017-10-27 06:43] VITALS: BP 115/45
--- NOTE | 2017-10-27 07:39 | PCM.PNPP ---
- General Info Date of Service: 10/27/17 Functional Status: Reports: Pain Controlled, Tolerating Diet, Ambulating, Urinating - Review of Systems General: Reports: No Symptoms Pulmonary: Reports: No Symptoms Cardiovascular: Reports: No Symptoms Gastrointestinal: Reports: No Symptoms Genitourinary: Reports: No Symptoms Musculoskeletal: Reports: No Symptoms Neurological: Reports: No Symptoms - Patient Data Vital Signs - Most Recent: Last Vital Signs Temp 36.7 C 10/27/17 05:30 Pulse 105 H 10/27/17 05:30 Resp 16 10/27/17 05:30 BP 115/45 L 10/27/17 05:30 Pulse Ox 99 10/27/17 05:30 Weight - Most Recent: 90.22 kg I&O - Last 24 Hours: Intake & Output 10/26/17 10/27/17 10/27/17 22:59 06:59 14:59 Intake Total 2 Balance 2 Lab Results - Last 24 Hours: Laboratory Results - last 24 hr 10/26/17 10/26/17 Range/Units 06:50 20:00 WBC 13.80 H (3.98-10.04) K/mm3 RBC 2.74 L (3.98-5.22) M/mm3 Hgb 7.9 L (11.2-15.7) gm/L Hct 24.0 L (34.1-44.9) % MCV 87.6 (79.4-94.8) fl MCH 28.8 (25.6-32.2) pg MCHC 32.9 (32.2-35.5) g/dl RDW Std Deviation 39.8 (36.4-46.3) fL Plt Count 115 L (182-369) K/mm3 MPV 11.1 (9.4-12.3) fl Blood Type B NEGATIVE Gel Antibody Screen Positive Screen 0 ros/5 flds - neg RhIG Candidate? Yes Rhogam Indicated Yes, baby rh pos H Med Orders - Current: Current Medications Acetaminophen (Tylenol) 650 mg PO Q4H PRN PRN Reason: mild pain or fever Benzocaine/Menthol (Dermoplast Pain Relief [place]) 0 gm TOP ASDIRECTED PRN PRN Reason: Perineal Comfort Measure Last Admin: 10/26/17 03:11 Dose: 1 spray Docusate Sodium (Colace) 100 mg PO BID PRN PRN Reason: Constipation Emollient Ointment (Lansinoh Hpa) 0 gm TOP ASDIRECTED PRN PRN Reason: Sore Nipples Ibuprofen (Motrin) 600 mg PO Q6H PRN PRN Reason: Mild pain or fever Last Admin: 10/26/17 19:53 Dose: 600 mg Witch Omayra (Tucks) 1 pad TOP ASDIRECTED PRN PRN Reason: Hemorrhoid pain Last Admin: 10/26/17 03:11 Dose: 1 applic Discontinued Medications Diphenhydramine HCl (Benadryl) 25 mg IVPUSH Q6H PRN PRN Reason: Itching Ephedrine Sulfate (Ephedrine Sulfate) 5 mg IVPUSH ASDIRECTED PRN PRN Reason: HYPOTENTSION Fentanyl (Sublimaze) 100 mcg EPIDUR Q3H PRN PRN Reason: PAIN Last Admin: 10/25/17 18:54 Dose: 100 mcg Fentanyl/Bupivacaine HCl (Fentanyl/Bupivacaine/Ns 2 Mcg-0.125% 100 Ml) 100 ml EPIDUR ASDIRECTED JAY Last Admin: 10/25/17 18:55 Dose: 100 ml Lactated Ringer's (Ringers, Lactated) 1,000 mls @ 100 mls/hr IV ASDIRECTED JAY Last Admin: 10/26/17 00:50 Dose: 100 mls/hr Oxytocin/Lactated Ringer's (Pitocin In Lr 10 Units/1,000 Ml) 10 unit in 1,000 mls @ 12 mls/hr IV TITRATE JAY; 2 MUNITS/MIN PRN Reason: Protocol Last Titration: 10/25/17 22:55 Dose: 2 munits/min, 12 mls/hr Oxytocin/Lactated Ringer's (Pitocin In Lr 10 Units/1,000 Ml) 10 unit in 1,000 mls @ 500 mls/hr IV .CONTINUOUS JAY Last Admin: 10/26/17 00:52 Dose: 500 mls/hr Lactated Ringer's (Ringers, Lactated) 1,000 mls @ 999 mls/hr IV STAT STA Stop: 10/26/17 01:36 Last Admin: 10/26/17 00:49 Dose: 999 mls/hr Lidocaine HCl (Xylocaine 1%) 50 ml INJECT ONETIME PRN PRN Reason: perineal repair Methylergonovine Maleate (Methergine) Confirm Administered Dose 0.2 mg .ROUTE .STK-MED ONE Stop: 10/26/17 00:22 Last Admin: 10/26/17 00:40 Dose: Not Given Methylergonovine Maleate (Methergine) 0.2 mg IM NOW Stop: 10/26/17 00:22 Last Admin: 10/26/17 00:21 Dose: 0.2 mg Misoprostol (Cytotec) Confirm Administered Dose 600 mcg .ROUTE .STK-MED ONE Stop: 10/26/17 00:20 Last Admin: 10/26/17 00:40 Dose: Not Given Misoprostol (Cytotec) 600 mcg PO NOW Stop: 10/26/17 00:20 Last Admin: 10/26/17 00:19 Dose: 600 mcg Nalbuphine HCl (Nubain) 10 mg IVPUSH Q2H PRN PRN Reason: Pain (moderate 4-6) Ondansetron HCl (Zofran) 4 mg IVPUSH Q4H PRN PRN Reason: Nausea/Vomiting Tranexamic Acid (Cyklokapron) Confirm Administered Dose 1,000 mg .ROUTE .STK- MED ONE Stop: 10/26/17 00:30 Last Admin: 10/26/17 00:40 Dose: Not Given - Interaction Infant Disposition, : in Room with Family Infant Interaction: Holding Infant Infant Feeding: Breastfed Infant; Nursed Well Support Person: Mother, Significant Other - Recovery Exam Fundal Tone: Firm Fundal Level: 1 Fingerbreadths Below Umbilicus Fundal Placement: Midline Lochia Amount: Small, Moderate Lochia Color: Rubra/Red Perineum Description: Edematous Episiotomy/Laceration: Approximated Bladder Status: Voiding Urinary Elimination: Voided - Exam General: Alert, Oriented, Cooperative GI/Abdominal Exam: Soft, Non-Tender Extremities: Normal Inspection, Pedal Edema Skin: Warm, Dry, Intact - Problem List & Annotations (1) Post-dates SNOMED Code(s): 17302661 Code(s): O48.0 - POST-TERM Status: Acute Current Visit: Yes Qualifiers: Post-term type: 40-42 weeks gestation Qualified Code(s): O48.0 - Post-term (2) History of asthma SNOMED Code(s): 864926844 Code(s): Z87.09 - PERSONAL HISTORY OF OTHER DISEASES OF THE RESPIRATORY SYSTEM Status: Acute Current Visit: Yes (3) Rh negative state in antepartum period SNOMED Code(s): 100595220 Code(s): O09.899 - SUPERVISION OF OTHER HIGH RISK PREGNANCIES, UNSP TRIMESTER Status: Acute Current Visit: Yes (4) Anxiety and depression SNOMED Code(s): 320018615 Code(s): F41.8 - OTHER SPECIFIED ANXIETY DISORDERS Status: Acute Current Visit: Yes (5) History of drug use SNOMED Code(s): 360691986 Code(s): Z87.898 - PERSONAL HISTORY OF OTHER SPECIFIED CONDITIONS Status: Acute Current Visit: Yes (6) Vaginal delivery SNOMED Code(s): 690585778 Code(s): O80 - ENCOUNTER FOR FULL-TERM UNCOMPLICATED DELIVERY Status: Acute Current Visit: Yes (7) hemorrhage SNOMED Code(s): 44641187 Code(s): O72.1 - OTHER IMMEDIATE HEMORRHAGE Status: Acute Current Visit: Yes Qualifiers: hemorrhage type: other immediate Qualified Code(s): O72.1 - Other immediate hemorrhage - Problem List Review Problem List Initiated/Reviewed/Updated: Yes - My Orders Last 24 Hours: My Active Orders 10/26/17 Breakfast Regular Diet [DIET] 10/27/17 02:08 Heat Therapy [OM.PC] PRN - Assessment Assessment:: 22 y/o G1 now P1001 PPD#1 from at 41 0/7 wks - Plan Plan:: * Routine cares * Encourage breast feeding * Rhogam given as baby was Rh positive * CBC with drop from admission, but patient tolerating well. No indication for transfusion * Discharge home today per patient preference
[2017-10-27] MEDS: Ibuprofen 600 MG Tab PO PRN (08:08)
== END 2017-10-27 13:00 | disposition home or self-care (01) | DRG 774 ==
LOC: JD.OB 10:04 → OBSVTOIN 10-26 00:14 → JD.MS 10-26 04:44 → JD.OB 10-26 14:26
PROVIDERS: ADMIT Obstetrics & Gynecology; ATTEND Obstetrics & Gynecology
PROC: 10E0XZZ Delivery of Products of Conception, External Approach (ICD-10-PCS; principal; 2017-10-26)
PROC: 0KQM0ZZ Repair Perineum Muscle, Open Approach (ICD-10-PCS; 2017-10-26)
PROC: 3E033VJ Introduction of Other Hormone into Peripheral Vein, Percutaneous Approach (ICD-10-PCS; 2017-10-26)
PROC: 10907ZC Drainage of Amniotic Fluid, Therapeutic from Products of Conception, Via Natural or Artificial Opening (ICD-10-PCS; 2017-10-26)
PROC: 00HU33Z Insertion of Infusion Device into Spinal Canal, Percutaneous Approach (ICD-10-PCS; 2017-10-26)
PROC: 3E0R3BZ Introduction of Anesthetic Agent into Spinal Canal, Percutaneous Approach (ICD-10-PCS; 2017-10-26)
DX: O48.0 Post-term pregnancy (principal); O67.9 Intrapartum hemorrhage, unspecified; O72.1 Other immediate postpartum hemorrhage; Z37.0 Single live birth; O99.52 Diseases of the respiratory system complicating childbirth; J45.909 Unspecified asthma, uncomplicated; O99.334 Smoking (tobacco) complicating childbirth; Z3A.41 41 weeks gestation of pregnancy; Z87.898 Personal history of other specified conditions; O70.1 Second degree perineal laceration during delivery; Z79.899 Other long term (current) drug therapy; O99.344 Other mental disorders complicating childbirth; F41.8 Other specified anxiety disorders
CPT/HCPCS: 36415; 51702; 59300; 59409; 80306; 85025; 85027; 85461; 86850; 86870; 86900; 86901; A9270-GY; J2210; J2590; J2790; J3010; J7120

== ENCOUNTER 2017-11-08 20:20 | Emergency (ER) | payer MEDICAID ==
[2017-11-08 20:36] VITALS: BP 108/61
--- NOTE | 2017-11-08 21:08 | EDM.PDOC ---
ED HPI GENERAL MEDICAL PROBLEM - General Chief Complaint: Respiratory Problem Stated Complaint: SOB RIGHT ARM PAIN Time Seen by Provider: 11/08/17 21:08 - History of Present Illness INITIAL COMMENTS - FREE TEXT/NARRATIVE: 22-year-old female presents emergency room with right arm pain and right chest wall pain. This started yesterday the patient had a baby on the eighth of this month. She' s otherwise been doing okay patient denies any trauma. Patient notices it when she does stuff with the right arm she gets a shooting pain down her right lateral chest. At times this is uncomfortable with breathing but most the time she can take deep breaths without any sort of limitation it's when she is using her arm that she notices the discomfort. Patient is not coughing and is otherwise doing okay she's not had any fevers or chills no nausea or vomiting. No leg pain and calf pain no abdominal discomfort out of the ordinary. She is currently taking vitamins and herpes suppressive medication. Right Abdomen Pain Score (Numeric/FACES): 10 - Related Data Allergies Allergy/AdvReac Type Severity Reaction Status Date / Time No Known Allergies Allergy Verified 11/08/17 20:36 Home Meds: Home Meds Vit W-Ca,Fe,FA(<1 mg) [ Vitamins] 1 tab PO DAILY 10/25/17 [ History] Ibuprofen [IJD: Ibuprofen] 600 mg PO Q6H PRN tablet 10/27/17 [Rx] Past Medical History HEENT History: Reports: Impaired Vision Respiratory History: Reports: Asthma Gastrointestinal History: Reports: GERD Genitourinary History: Reports: [employer]/SANDB[employer]ER History: Reports: , Other (See Below) Other OB/BYN History: Hx of genital herpes and Chlamydia Musculoskeletal History: Reports: Fracture Other Musculoskeletal History: right arm Psychiatric History: Reports: Anxiety, Depression - Infectious Disease History Infectious Disease History: Reports: Herpes - Past Surgical History HEENT Surgical History: Reports: Tonsillectomy Social & Family History - Family History Family Medical History: Noncontributory - Tobacco Use Smoking Status *Q: Current Every Day Smoker Years of Tobacco use: 10 Packs/Tins Daily: 0.4 Used Tobacco, but Quit: No Second Hand Smoke Exposure: No - Caffeine Use Caffeine Use: Reports: Soda - Alcohol Use Days Per Week of Alcohol Use: 1 Number of Drinks Per Day: 2 Total Drinks Per Week: 2 - Recreational Drug Use Recreational Drug Use: No Drug Use in Last 12 Months: Yes Recreational Drug Type: Reports: Marijuana/Hashish, Methamphetamine (Last use in 2014) Recreational Drug Use Frequency: Binges Recreational Drug Last Use: last week ED ROS GENERAL - Review of Systems Review Of Systems: See Below Constitutional: Reports: No Symptoms HEENT: Reports: No Symptoms Respiratory: Reports: Pleuritic Chest Pain. Denies: Cough, Sputum Cardiovascular: Reports: No Symptoms Endocrine: Reports: No Symptoms GI/Abdominal: Reports: No Symptoms : Reports: No Symptoms Neurological: Reports: No Symptoms, Change in Speech ED EXAM, GENERAL - Physical Exam Exam: See Below Exam Limited By: No Limitations General Appearance: Alert, No Apparent Distress Head: Atraumatic, Normocephalic Neck: Normal Inspection, Supple, Non-Tender, Full Range of Motion Respiratory/Chest: No Respiratory Distress, Lungs Clear, Normal Breath Sounds, No Accessory Muscle Use, Chest Non-Tender. No: Respiratory Distress, Decreased Breath Sounds, Crackles, Rales, Rhonchi Extremities: Other (The patient has some palpatory discomfort along with anterior lateral right chest with her arm held in just the right position otherwise it is gone. She is able demonstrate good range of motion of the arm. Palpation of the ribs is unrevealing. Neurovascular status the upper extremity is normal range of motion at all levels is entirely normal.) Course - Vital Signs Last Recorded V/S: Last Vital Signs Temp 36.2 C 11/08/17 20:34 Pulse 76 11/08/17 20:34 Resp 20 11/08/17 20:34 BP 108/61 11/08/17 20:34 Pulse Ox 98 11/08/17 20:34 - Re-Assessments/Exams Free Text/Narrative Re-Assessment/Exam: 11/08/17 21:26 Discussed the risks and benefits of checking a chest x-ray the patient would like to hold off on this she is willing to try some ibuprofen at home and follow -up as needed. Departure - Departure Time of Disposition: 21:26 Disposition: Home, Self-Care 01 Clinical Impression: Chest wall muscle strain, Strain of right upper arm - Discharge Information Referrals: Tonia Cisneros MD [Primary Care Provider] - Forms: ED Department Discharge Additional Instructions: Return to the emergency room with any questions problems worsening symptoms. Use some ibuprofen until this is better. Follow-up in the clinic on Monday if no improvement but I suspect this will get better fairly quickly.
== END 2017-11-08 21:37 | disposition home or self-care (01) ==
LOC: JD.ED 20:20
DX: O90.89 Other complications of the puerperium, not elsewhere classified (principal); S29.011A Strain of muscle and tendon of front wall of thorax, initial encounter; S46.911A Strain of unspecified muscle, fascia and tendon at shoulder and upper arm level, right arm, initial encounter; O99.335 Smoking (tobacco) complicating the puerperium; F17.210 Nicotine dependence, cigarettes, uncomplicated; X58.XXXA Exposure to other specified factors, initial encounter
CPT/HCPCS: 99283

== ENCOUNTER 2020-05-04 06:46 | Inpatient (IN) | payer MEDICAID ==
[~2020-05-04 06:46] MED LIST: Bupivacaine 0.25% 10 ML SDV ONE
[2020-05-04] MEDS ORDERED: Nalbuphine 10 MG/ML Syringe IVPUSH PRN (06:57)
[2020-05-04] MEDS ORDERED: Sodium Chloride 0.9% 10 ML Syringe FLUSH PRN (06:57)
[2020-05-04] MEDS ORDERED: Ondansetron 4 MG/2 ML SDV IVPUSH PRN (06:57)
[2020-05-04] MEDS ORDERED: Oxytocin/Lactated Ringers 10 UNIT/1,000 ML BAG IV SCH ×3 (07:00→14:30)
--- NOTE | 2020-05-04 07:02 | PCM.LDHP ---
L&D History of Present Illness - General Date of Service: 05/04/20 Admit Problem/Dx: Patient Status Order with Admit Dx/Problem 05/04/20 06:57 Patient Status [ADT] Routine Admission Diagnosis/Problem Admission Diagnosis/Problem Normal Source of Information: Patient History Limitations: Reports: No Limitations - History of Present Illness Introduction:: Patient is a 25 y/o at 40 0/7 wks who was scheduled for elective IOL for today, but come in musa strongly since overnight. 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: : 2 Para: 1 LMP (Approximate): Musculoskeletal History: Reports: Fracture Other Musculoskeletal History: right arm Psychiatric History: Reports: Anxiety, Depression - Infectious Disease History Infectious Disease History: Reports: Herpes - Past Surgical History HEENT Surgical History: Reports: Oral Surgery, Tonsillectomy Social & Family History - Family History Family Medical History: Noncontributory - Tobacco Use Smoking Status *Q: Former Smoker - Caffeine Use Caffeine Use: Reports: Soda - Alcohol Use Alcohol Use History: No - Recreational Drug Use Recreational Drug Use: Yes Drug Use in Last 12 Months: No H&P Review of Systems - Review of Systems: Review Of Systems: See Below General: Reports: No Symptoms Pulmonary: Reports: No Symptoms Cardiovascular: Reports: No Symptoms Gastrointestinal: Reports: Abdominal Pain (contractions ) Genitourinary: Reports: No Symptoms Musculoskeletal: Reports: No Symptoms Psychiatric: Reports: No Symptoms Neurological: Reports: No Symptoms L&D Exam - Exam Exam: See Below - OB Specific Contraction Intensity: Moderate to Strong Movement: Active Heart Tones: Present Heart Tones per Min: 135 Heart Rate (FHR) Variability: Moderate (6-25 bmp) Presentation: Vertex - Grimes Score Grimes Score Cervix Position: Anterior Grimes Score Consistency: Soft Grimes Score Effacement: >80% Grimes Score Dilation: 3-4 cm Grimes Score 's Station: -2 Grimes Score Total: 10 - Exam General: Alert, Oriented, Cooperative Lungs: Clear to Auscultation, Normal Respiratory Effort Cardiovascular: Regular Rate, Regular Rhythm GI/Abdominal Exam: Soft, Non-Tender Genitourinary: Normal external exam Extremities: Normal Inspection Skin: Warm, Dry, Intact - Patient Data Result Diagrams: 05/04/20 07:10 - Problem List (1) 40 weeks gestation of SNOMED Code(s): 87331607 ICD Code: Z3A.40 - 40 WEEKS GESTATION OF Status: Acute Current Visit: Yes (2) Normal labor SNOMED Code(s): 68081903 ICD Code: O80 - ENCOUNTER FOR FULL-TERM UNCOMPLICATED DELIVERY; Z37.9 - OUTCOME OF DELIVERY, UNSPECIFIED Status: Acute Current Visit: Yes (3) Rh negative state in antepartum period SNOMED Code(s): 439353851 ICD Code: O09.899 - SUPERVISION OF OTHER HIGH RISK PREGNANCIES, UNSP TRIMESTER Status: Acute Current Visit: No Problem List Initiated/Reviewed/Updated: Yes Orders Last 24hrs: Active Orders 24 hr Category Date Time Status Patient Status [ADT] Routine ADT 05/04/20 06:57 Ordered Communication Order [RC] ASDIRECTED Care 05/04/20 06:57 Ordered Communication Order [RC] ASDIRECTED Care 05/04/20 06:57 Ordered Communication Order [RC] ASDIRECTED Care 05/04/20 06:57 Ordered Heart Tones [RC] ASDIRECTED Care 05/04/20 06:58 Ordered Non Stress Test [RC] PER UNIT ROUTINE Care 05/04/20 06:57 Ordered Notify Provider [RC] ASDIRECTED Care 05/04/20 06:57 Ordered Notify Provider [RC] PRN Care 05/04/20 06:57 Ordered Peripheral IV Care [RC] . DIRECTED Care 05/04/20 06:58 Ordered Up ad Robyn [RC] ASDIRECTED Care 05/04/20 06:59 Ordered Vaginal Exam [RC] ASDIRECTED Care 05/04/20 06:57 Ordered Vital Signs [RC] ASDIRECTED Care 05/04/20 06:57 Ordered Vital Signs [RC] PER UNIT ROUTINE Care 05/04/20 06:57 Ordered Regular Diet [DIET] Diet 05/04/20 Breakfast Ordered CBC W/O DIFF,HEMOGRAM [HEME] Routine Lab 05/04/20 06:57 Ordered RAPID PLASMA REAGIN,RPR [CHEM] Routine Lab 05/04/20 06:57 Ordered TYPE AND SCREEN [BBK] Routine Lab 05/04/20 06:57 Ordered Lactated Ringers [Ringers, Lactated] 1,000 ml Med 05/04/20 07:00 Ordered IV ASDIRECTED Nalbuphine [Nubain] Med 05/04/20 06:57 Ordered 10 mg IVPUSH Q2H PRN Ondansetron [Zofran] Med 05/04/20 06:57 Ordered 4 mg IVPUSH Q4H PRN Oxytocin/Lactated Ringers [Pitocin in LR 10 Units/1,000 Med 05/04/20 07:00 Ordered ML] 10 unit in 1,000 ml IV .CONTINUOUS Oxytocin/Lactated Ringers [Pitocin in LR 10 Units/1,000 Med 05/04/20 07:00 Ordered ML] 10 unit in 1,000 ml IV TITRATE Sodium Chloride 0.9% [Saline Flush] Med 05/04/20 06:57 Ordered 10 ml FLUSH ASDIRECTED PRN Electronic Heart Tones Ext w TOCO [WOMSER] Oth 05/04/20 06:57 Ordered Routine Electronic Heart Tones Internal [WOMSER] Per Unit Oth 05/04/20 06:57 Ordered Routine Peripheral IV Insertion Adult [OM.PC] Routine Oth 05/04/20 06:57 Ordered Resuscitation Status Routine Resus Stat 05/04/20 06:57 Ordered Assessment/Plan Comment:: * Labs done * Already in labor, no need for augmentation * Plans epidural * Anticipate
[2020-05-04] MEDS: Lactated Ringers 1,000 ML IV SCH ×3 (07:18→10:35)
[2020-05-04] MEDS ORDERED: Bupivacaine/fentaNYL/NS 100 ML Bag EPIDUR PRN (07:41)
[2020-05-04] MEDS ORDERED: ePHEDrine 50 MG/ML SDV IVPUSH PRN (07:41)
[2020-05-04] MEDS ORDERED: fentaNYL 100 MCG/2 ML SDV EPIDUR PRN (07:41)
[2020-05-04] MEDS ORDERED: diphenhydrAMINE 50 MG/ML SDV IVPUSH PRN (07:41)
--- NOTE | 2020-05-04 08:57 | PCM.PREANE ---
Preanesthetic Assessment - Procedure Proposed Procedure: Labor Epidural - Anesthesia/Transfusion/Family Hx Anesthesia History: Prior Anesthesia Without Reaction Transfusion History: No Prior Transfusion(s) - Review of Systems General: No Symptoms Pulmonary: No Symptoms Cardiovascular: No Symptoms Gastrointestinal: No Symptoms Neurological: No Symptoms (Occassional Back Pain with numbness into legs with ) Other: Reports: None - Physical Assessment Vital Signs: Last Vital Signs Temp 36.7 C 05/04/20 06:57 Pulse 91 05/04/20 06:57 Resp 18 05/04/20 06:57 BP 121/62 05/04/20 06:57 Pulse Ox 100 05/04/20 06:57 Height: 1.63 m Weight: 97.522 kg ASA Class: 2 Mental Status: Alert & Oriented x3 Airway Class: Mallampati = 2 Dentition: Reports: Normal Dentition Thyro-Mental Finger Breadths: 3 Mouth Opening Finger Breadths: 3 ROM/Head Extension: Full Lungs: Clear to Auscultation, Normal Respiratory Effort Cardiovascular: Regular Rate, Regular Rhythm - Lab Values: Laboratory Last Values WBC 12.48 K/mm3 (3.98-10.04) H 05/04/20 07:10 RBC 4.39 M/mm3 (3.98-5.22) 05/04/20 07:10 Hgb 12.2 gm/dl (11.2-15.7) D 05/04/20 07:10 Hct 37.4 % (34.1-44.9) 05/04/20 07:10 MCV 85.2 fl (79.4-94.8) 05/04/20 07:10 MCH 27.8 pg (25.6-32.2) 05/04/20 07:10 MCHC 32.6 g/dl (32.2-35.5) 05/04/20 07:10 RDW Std Deviation 41.3 fL (36.4-46.3) 05/04/20 07:10 Plt Count 154 K/mm3 (182-369) L 05/04/20 07:10 MPV 11.5 fl (9.4-12.3) 05/04/20 07:10 - Allergies Allergies/Adverse Reactions: Allergies Allergy/AdvReac Type Severity Reaction Status Date / Time No Known Allergies Allergy Verified 11/08/17 20:36 - Acknowledgements Anesthesia Type Planned: Epidural Pt an Appropriate Candidate for the Planned Anesthesia: Yes Alternatives and Risks of Anesthesia Discussed w Pt/Guardian: Yes Pt/Guardian Understands and Agrees with Anesthesia Plan: Yes PreAnesthesia Questionnaire HEENT History: Reports: Impaired Vision Respiratory History: Reports: Asthma Gastrointestinal History: Reports: GERD Genitourinary History: Reports: STD Other Genitourinary History: herpes #1 [employer] History: Reports: , Other (See Below) Other OB/BYN History: Hx of genital herpes and Chlamydia Musculoskeletal History: Reports: Fracture Other Musculoskeletal History: right arm Psychiatric History: Reports: Anxiety, Depression - Infectious Disease History Infectious Disease History: Reports: Herpes - Past Surgical History HEENT Surgical History: Reports: Tonsillectomy Female Surgical History: Reports: None - HOME MEDS Home Medications: Home Meds Vit Calc,Iron,Folic [ Vitamins] 1 tab PO DAILY 10/25/17 [History] Acetaminophen with Codeine [Tylenol with Codeine #3 Tablet] 1 - 2 each PO Q6H PRN 04/05/20 [History] Acyclovir 400 mg PO TID 04/05/20 [History] Sertraline [Zoloft] 50 mg PO DAILY 04/05/20 [History] - CURRENT (IN HOUSE) MEDS Current Meds: Current Medications Diphenhydramine HCl (Benadryl) 25 mg IVPUSH Q6H PRN PRN Reason: pruritis Ephedrine Sulfate (Ephedrine Sulfate) 5 mg IVPUSH ASDIRECTED PRN PRN Reason: Hypotension Fentanyl (Sublimaze) 100 mcg EPIDUR Q3H PRN PRN Reason: Pain Last Admin: 05/04/20 08:02 Dose: 100 mcg Documented by: Fentanyl/Bupivacaine HCl (Fentanyl/Bupivacaine/Ns 2 Mcg-0.125% 100 Ml) 100 ml EPIDUR ASDIRECTED PRN PRN Reason: Pain Last Admin: 05/04/20 08:00 Dose: 100 ml Documented by: Oxytocin/Lactated Ringer's (Pitocin In Lr 10 Units/1,000 Ml) 10 unit in 1,000 mls @ 12 mls/hr IV TITRATE JAY; Protocol Oxytocin/Lactated Ringer's (Pitocin In Lr 10 Units/1,000 Ml) 10 unit in 1,000 mls @ 500 mls/hr IV .CONTINUOUS JAY Lactated Ringer's (Ringers, Lactated) 1,000 mls @ 40 mls/hr IV ASDIRECTED JAY Last Admin: 05/04/20 08:04 Dose: 999 mls/hr Documented by: Nalbuphine HCl (Nubain) 10 mg IVPUSH Q2H PRN PRN Reason: Pain Ondansetron HCl (Zofran) 4 mg IVPUSH Q4H PRN PRN Reason: Nausea/Vomiting Sodium Chloride (Saline Flush) 10 ml FLUSH ASDIRECTED PRN PRN Reason: Keep Vein Open
[2020-05-04] MEDS ORDERED: Benzocaine/Menthol 20%-0.5% Spray 56 GM Canister TOP PRN (17:02)
[2020-05-04] MEDS ORDERED: Witch Hazel Medicated Pads 40/Jar TOP PRN (17:02)
--- NOTE | 2020-05-04 17:04 | PCM.DEL ---
L & D Note - General Info Date of Service: 05/04/20 - Delivery Note Labor: Augmented by Oxytocin Delivery Outcome: Livebirth Delivery Method: Spontaneous Vaginal Delivery-Single Delivery Mode: Spontaneous Presentation: Left Occiput Anterior (LACIE) Nuchal Cord: Present Anesthesia Type: Epidural Amniotic Fluid Description: Clear Episiotomy Type: None Laceration: None Placenta: Intact, Spontaneous Cord: 3 Vessels Estimated Blood Loss: 100 [place]: Bulb Syringe, Stimulated, Warmed, [place] Used, Warmer Used Delivery Comments (Free Text/Narrative):: Patient found to be complete and began pushing. With maternal pushing effort head delivered from an LACIE presentation. Nuchal cord present. With gentle downward traction shoulders and body delivered. placed on maternal abdomen. Cord clamped and cut. Cord blood obtained. Placenta allowed time to separate and expelled intact. Inspection of perineum showed no lacerations - General Info Date of Service: 05/04/20 - Patient Data Vitals - Most Recent: Last Vital Signs Temp 36.7 C 05/04/20 06:57 Pulse 91 05/04/20 06:57 Resp 18 05/04/20 06:57 BP 121/62 05/04/20 06:57 Pulse Ox 100 05/04/20 06:57 Weight - Most Recent: 97.522 kg - Problem List & Annotations (1) 40 weeks gestation of SNOMED Code(s): 36588556 Code(s): Z3A.40 - 40 WEEKS GESTATION OF Status: Acute Current Visit: Yes (2) Normal labor SNOMED Code(s): 52873186 Code(s): O80 - ENCOUNTER FOR FULL-TERM UNCOMPLICATED DELIVERY; Z37.9 - OUTCOME OF DELIVERY, UNSPECIFIED Status: Acute Current Visit: Yes (3) Rh negative state in antepartum period SNOMED Code(s): 329532500 Code(s): O09.899 - SUPERVISION OF OTHER HIGH RISK PREGNANCIES, UNSP TRIMESTER Status: Acute Current Visit: No (4) Vaginal delivery SNOMED Code(s): 907561751 Code(s): O80 - ENCOUNTER FOR FULL-TERM UNCOMPLICATED DELIVERY Status: Acute Current Visit: No - Problem List Review Problem List Initiated/Reviewed/Updated: Yes - My Orders Last 24 Hours: My Active Orders 05/04/20 06:57 Patient Status [ADT] Routine Communication Order [RC] ASDIRECTED Communication Order [RC] ASDIRECTED Communication Order [RC] ASDIRECTED Notify Provider [RC] ASDIRECTED Notify Provider [RC] PRN Vaginal Exam [RC] ASDIRECTED Vital Signs [RC] ASDIRECTED Vital Signs [RC] PER UNIT ROUTINE Nalbuphine [Nubain] 10 mg IVPUSH Q2H PRN Ondansetron [Zofran] 4 mg IVPUSH Q4H PRN Sodium Chloride 0.9% [Saline Flush] 10 ml FLUSH ASDIRECTED PRN Electronic Heart Tones Ext w TOCO [WOMSER] Routine Electronic Heart Tones Internal [WOMSER] Per Unit Routine Peripheral IV Insertion Adult [OM.PC] Routine Resuscitation Status Routine 05/04/20 06:58 Heart Tones [RC] ASDIRECTED Peripheral IV Care [RC] . DIRECTED 05/04/20 06:59 Up ad Robyn [RC] ASDIRECTED 05/04/20 Breakfast Regular Diet [DIET] Lactated Ringers [Ringers, Lactated] 1,000 ml IV ASDIRECTED Oxytocin/Lactated Ringers [Pitocin in LR 10 Units/1,000 ML] 10 unit in 1,000 ml IV .CONTINUOUS Oxytocin/Lactated Ringers [Pitocin in LR 10 Units/1,000 ML] 10 unit in 1,000 ml IV TITRATE 05/04/20 07:10 ANTIBODY IDENTIFICATION [BBK] Routine RAPID PLASMA REAGIN,RPR [CHEM] Routine TYPE AND SCREEN [BBK] Routine 05/04/20 14:30 Oxytocin/Lactated Ringers [Pitocin in LR 10 Units/1,000 ML] 10 unit in 1,000 ml IV TITRATE 05/04/20 16:57 Patient Status Manage Transfer [TRANSFER] Routine - Assessment Assessment:: PPD#0 - Plan Plan:: * Routine cares * Breast feeding * Will assess blood type to assess need for Rhogam * Discharge home in 1-2 days
[2020-05-04] MEDS: Docusate Sodium 100 MG Cap PO PRN (18:37)
[2020-05-04] MEDS: Ibuprofen 600 MG Tab PO PRN (19:15)
[2020-05-05] MEDS: Ibuprofen 600 MG Tab PO PRN ×4 (02:43→20:51)
[2020-05-05] MEDS: Acetaminophen 325 MG Tab PO PRN ×3 (02:43→18:24)
--- NOTE | 2020-05-05 06:56 | PCM.PNPP ---
- General Info Date of Service: 05/05/20 Functional Status: Reports: Pain Controlled, Tolerating Diet, Ambulating, Urinating - Review of Systems General: Reports: No Symptoms Pulmonary: Reports: No Symptoms Cardiovascular: Reports: No Symptoms Gastrointestinal: Reports: Abdominal Pain (cramping) Genitourinary: Reports: No Symptoms Musculoskeletal: Reports: No Symptoms - Patient Data Vital Signs - Most Recent: Last Vital Signs Temp 36.3 C 05/05/20 03:57 Pulse 87 05/05/20 03:57 Resp 14 05/05/20 03:57 BP 102/47 L 05/05/20 03:57 Pulse Ox 97 05/05/20 03:57 Weight - Most Recent: 97.522 kg I&O - Last 24 Hours: Intake & Output 05/04/20 05/04/20 05/05/20 14:59 22:59 06:59 Intake Total 3512 Output Total 350 Balance 3162 Lab Results - Last 24 Hours: Laboratory Results - last 24 hr 05/04/20 05/04/20 05/04/20 Range/Units 07:10 07:10 07:10 WBC 12.48 H (3.98-10.04) K/mm3 RBC 4.39 (3.98-5.22) M/mm3 Hgb 12.2 D (11.2-15.7) gm/dl Hct 37.4 (34.1-44.9) % MCV 85.2 (79.4-94.8) fl MCH 27.8 (25.6-32.2) pg MCHC 32.6 (32.2-35.5) g/dl RDW Std Deviation 41.3 (36.4-46.3) fL Plt Count 154 L (182-369) K/mm3 MPV 11.5 (9.4-12.3) fl Urine Opiates Screen (IJGEGC=061) Ur Buprenorphine Scrn (CUTOFF=10) Ur Oxycodone Screen (XDI8ZC=575) Urine Methadone Screen (RHDLQU=281) Ur Propoxyphene Screen (ODHJIR=463) Ur Barbiturates Screen (OFHGRL=502) Ur Tricyclics Screen (SVPEZI=755) Ur Phencyclidine Scrn (CUTOFF=25) Ur Amphetamine Screen (KQXIFF=671) U Methamphetamines Scrn (EPTWLW=804) U Benzodiazepines Scrn (BQHYYA=707) U Cocaine Metab Screen (QVLXQX=017) U Marijuana (THC) Screen (CUTOFF=50) RPR Non-reactive (NONREACTIVE) COVID-19 (ROSEMARY) (NEGATIVE) Blood Type B NEGATIVE Gel Antibody Screen Positive Screen 1 ros/5 flds - neg RhIG Candidate? Yes 05/04/20 05/04/20 Range/Units 07:35 10:38 WBC (3.98-10.04) K/mm3 RBC (3.98-5.22) M/mm3 Hgb (11.2-15.7) gm/dl Hct (34.1-44.9) % MCV (79.4-94.8) fl MCH (25.6-32.2) pg MCHC (32.2-35.5) g/dl RDW Std Deviation (36.4-46.3) fL Plt Count (182-369) K/mm3 MPV (9.4-12.3) fl Urine Opiates Screen Negative (VTVVEL=306) Ur Buprenorphine Scrn Negative (CUTOFF=10) Ur Oxycodone Screen Negative (BCF7KW=628) Urine Methadone Screen Negative (RJCSKN=910) Ur Propoxyphene Screen Negative (FMNUAE=701) Ur Barbiturates Screen Negative (DIVCHO=471) Ur Tricyclics Screen Negative (UOXQFR=503) Ur Phencyclidine Scrn Negative (CUTOFF=25) Ur Amphetamine Screen Negative (NUNQYS=200) U Methamphetamines Scrn Negative (MFJYSS=404) U Benzodiazepines Scrn Negative (JAHKNH=501) U Cocaine Metab Screen Negative (YHWRPW=483) U Marijuana (THC) Screen Negative (CUTOFF=50) RPR (NONREACTIVE) COVID-19 (ROSEMARY) Negative (NEGATIVE) Blood Type Gel Antibody Screen Screen RhIG Candidate? Med Orders - Current: Current Medications Acetaminophen (Tylenol) 650 mg PO Q4H PRN PRN Reason: mild pain or fever Last Admin: 05/05/20 02:43 Dose: 650 mg Documented by: Benzocaine/Menthol (Dermoplast Pain Relief [place]) 0 gm TOP ASDIRECTED PRN PRN Reason: Perineal Comfort Measure Docusate Sodium (Colace) 100 mg PO BID PRN PRN Reason: Constipation Last Admin: 05/04/20 18:37 Dose: 100 mg Documented by: Ibuprofen (Motrin) 600 mg PO Q6H PRN PRN Reason: Mild pain or fever Last Admin: 05/05/20 02:43 Dose: 600 mg Documented by: [place] ([place]) 1 pad TOP ASDIRECTED PRN PRN Reason: Perineal Comfort Measure Discontinued Medications Diphenhydramine HCl (Benadryl) 25 mg IVPUSH Q6H PRN PRN Reason: pruritis Ephedrine Sulfate (Ephedrine Sulfate) 5 mg IVPUSH ASDIRECTED PRN PRN Reason: Hypotension Fentanyl (Sublimaze) 100 mcg EPIDUR Q3H PRN PRN Reason: Pain Last Admin: 05/04/20 08:02 Dose: 100 mcg Documented by: Fentanyl/Bupivacaine HCl (Fentanyl/Bupivacaine/Ns 2 Mcg-0.125% 100 Ml) 100 ml EPIDUR ASDIRECTED PRN PRN Reason: Pain Last Admin: 05/04/20 08:00 Dose: 100 ml Documented by: Oxytocin/Lactated Ringer's (Pitocin In Lr 10 Units/1,000 Ml) 10 unit in 1,000 mls @ 12 mls/hr IV TITRATE JAY; Protocol Last Admin: 05/04/20 14:30 Dose: 2 munits/min, 12 mls/hr Documented by: Oxytocin/Lactated Ringer's (Pitocin In Lr 10 Units/1,000 Ml) 10 unit in 1,000 mls @ 500 mls/hr IV .CONTINUOUS JAY Lactated Ringer's (Ringers, Lactated) 1,000 mls @ 40 mls/hr IV ASDIRECTED JAY Last Admin: 05/04/20 10:35 Dose: 999 mls/hr Documented by: Oxytocin/Lactated Ringer's (Pitocin In Lr 10 Units/1,000 Ml) 10 unit in 1,000 mls @ 12 mls/hr IV TITRATE JAY; Protocol Nalbuphine HCl (Nubain) 10 mg IVPUSH Q2H PRN PRN Reason: Pain Ondansetron HCl (Zofran) 4 mg IVPUSH Q4H PRN PRN Reason: Nausea/Vomiting Sodium Chloride (Saline Flush) 10 ml FLUSH ASDIRECTED PRN PRN Reason: Keep Vein Open - Infant Interaction Infant Disposition, : [place] in Room with Family Infant Interaction: Holding Infant Feeding: Breastfed Infant; Nursed Well Support Person: Significant Other - Recovery Exam Fundal Tone: Firm Fundal Level: 1 Fingerbreadths Below Umbilicus Fundal Placement: Midline Lochia Amount: Small Lochia Color: Rubra/Red Perineum Description: Intact, Minimal Bruising/Swelling Episiotomy/Laceration: None Bladder Status: Voiding Urinary Elimination: Voided - Exam General: Alert, Oriented, Cooperative GI/Abdominal Exam: Soft, Non-Tender Extremities: Normal Inspection Skin: Warm, Dry, Intact - Problem List & Annotations (1) 40 weeks gestation of SNOMED Code(s): 05082909 Code(s): Z3A.40 - 40 WEEKS GESTATION OF Status: Acute Current Visit: Yes (2) Normal labor SNOMED Code(s): 34521545 Code(s): O80 - ENCOUNTER FOR FULL-TERM UNCOMPLICATED DELIVERY; Z37.9 - OUTCOME OF DELIVERY, UNSPECIFIED Status: Acute Current Visit: Yes (3) Rh negative state in antepartum period SNOMED Code(s): 435674248 Code(s): O09.899 - SUPERVISION OF OTHER HIGH RISK PREGNANCIES, UNSP TRIMESTER Status: Acute Current Visit: No (4) Vaginal delivery SNOMED Code(s): 393142814 Code(s): O80 - ENCOUNTER FOR FULL-TERM UNCOMPLICATED DELIVERY Status: Acute Current Visit: No - Problem List Review Problem List Initiated/Reviewed/Updated: Yes - My Orders Last 24 Hours: My Active Orders 05/04/20 06:57 Resuscitation Status Routine 05/04/20 07:10 ANTIBODY IDENTIFICATION [BBK] Routine SCREEN [BBK] Routine RH IMMUNE GLOBULIN [BBK] Routine TYPE AND SCREEN [BBK] Routine 05/04/20 Dinner Regular Diet [DIET] 05/04/20 17:02 Acetaminophen [TylenoL] 650 mg PO Q4H PRN Benzocaine/Menthol [Dermoplast Pain Relief [place]] See Dose Instructions TOP ASDIRECTED PRN Docusate Sodium [Colace] 100 mg PO BID PRN Ibuprofen [Motrin] 600 mg PO Q6H PRN witch [place]ort[place] [Tucks] 1 pad TOP ASDIRECTED PRN Heat Therapy [OM.PC] PRN 05/04/20 17:02 Activity as Tolerated [RC] PER UNIT ROUTINE Vital Signs [RC] 09,15,21,03 Assess Lochia [WOMSER] Per Unit Routine Assess Uterine Involution [WOMSER] Per Unit Routine Breast Pump [WOMSER] Per Unit Routine Ice Therapy [OM.PC] Per Unit Routine Perineal Care [OM.PC] Per Unit Routine Peripheral IV Discontinue [OM.PC] Routine Sitz Bath [OM.PC] Per Unit Routine 05/04/20 20:41 RHIG WORKUP, [BBK] Stat 05/05/20 17:02 Heat Therapy [OM.PC] PRN - Assessment Assessment:: PPD#1 - Plan Plan:: * Routine cares * Breast feeding * Rhogam given * Discharge home tomorrow per Peds
[2020-05-05] MEDS: Docusate Sodium 100 MG Cap PO PRN ×2 (08:10→20:08)
--- NOTE | 2020-05-05 08:21 | PCM48HPAN ---
Post Anesthesia Note - EVALUATION WITHIN 48HRS OF ANESTHETIC Vital Signs in Normal Range: Yes Patient Participated in Evaluation: Yes Respiratory Function Stable: Yes Airway Patent: Yes Cardiovascular Function Stable: Yes Hydration Status Stable: Yes Pain Control Satisfactory: Yes Nausea and Vomiting Control Satisfactory: Yes Mental Status Recovered: Yes Vital Signs: Last Vital Signs Temp 36.3 C 05/05/20 03:57 Pulse 87 05/05/20 03:57 Resp 14 05/05/20 03:57 BP 102/47 L 05/05/20 03:57 Pulse Ox 97 05/05/20 03:57 - COMMENTS/OBSERVATIONS Free Text/Narrative:: no anesthesia complications noted
--- NOTE | 2020-05-06 06:55 | PCM.PNPP ---
- General Info Date of Service: 05/06/20 Functional Status: Reports: Pain Controlled, Tolerating Diet, Ambulating, Urinating - Review of Systems General: Reports: No Symptoms Pulmonary: Reports: No Symptoms Cardiovascular: Reports: No Symptoms Gastrointestinal: Reports: No Symptoms Genitourinary: Reports: No Symptoms Musculoskeletal: Reports: No Symptoms Neurological: Reports: No Symptoms - General Info Date of Service: 05/06/20 - Patient Data Vital Signs - Most Recent: Last Vital Signs Temp 36.4 C 05/06/20 03:58 Pulse 83 05/06/20 03:58 Resp 16 05/06/20 03:58 BP 115/65 05/06/20 03:58 Pulse Ox 96 05/06/20 03:58 Weight - Most Recent: 97.522 kg I&O - Last 24 Hours: Intake & Output 05/05/20 05/05/20 05/06/20 14:59 22:59 06:59 Intake Total 240 480 Balance 240 480 Med Orders - Current: Current Medications Acetaminophen (Tylenol) 650 mg PO Q4H PRN PRN Reason: mild pain or fever Last Admin: 05/05/20 18:24 Dose: 650 mg Documented by: Benzocaine/Menthol (Dermoplast Pain Relief [place]) 0 gm TOP ASDIRECTED PRN PRN Reason: Perineal Comfort Measure Docusate Sodium (Colace) 100 mg PO BID PRN PRN Reason: Constipation Last Admin: 05/05/20 20:08 Dose: 100 mg Documented by: Ibuprofen (Motrin) 600 mg PO Q6H PRN PRN Reason: Mild pain or fever Last Admin: 05/05/20 20:51 Dose: 600 mg Documented by: [place] Mcelroy) 1 pad TOP ASDIRECTED PRN PRN Reason: Perineal Comfort Measure Discontinued Medications Bupivacaine HCl (Sensorcaine-Mpf 0.25%) 10 ml .ROUTE .STK-MED ONE Stop: 05/04/20 00:01 Diphenhydramine HCl (Benadryl) 25 mg IVPUSH Q6H PRN PRN Reason: pruritis Ephedrine Sulfate (Ephedrine Sulfate) 5 mg IVPUSH ASDIRECTED PRN PRN Reason: Hypotension Fentanyl (Sublimaze) 100 mcg EPIDUR Q3H PRN PRN Reason: Pain Last Admin: 05/04/20 08:02 Dose: 100 mcg Documented by: Fentanyl/Bupivacaine HCl (Fentanyl/Bupivacaine/Ns 2 Mcg-0.125% 100 Ml) 100 ml EPIDUR ASDIRECTED PRN PRN Reason: Pain Last Admin: 05/04/20 08:00 Dose: 100 ml Documented by: Oxytocin/Lactated Ringer's (Pitocin In Lr 10 Units/1,000 Ml) 10 unit in 1,000 mls @ 12 mls/hr IV TITRATE JAY; Protocol Last Admin: 05/04/20 14:30 Dose: 2 munits/min, 12 mls/hr Documented by: Oxytocin/Lactated Ringer's (Pitocin In Lr 10 Units/1,000 Ml) 10 unit in 1,000 mls @ 500 mls/hr IV .CONTINUOUS JAY Lactated Ringer's (Ringers, Lactated) 1,000 mls @ 40 mls/hr IV ASDIRECTED JAY Last Admin: 05/04/20 10:35 Dose: 999 mls/hr Documented by: Oxytocin/Lactated Ringer's (Pitocin In Lr 10 Units/1,000 Ml) 10 unit in 1,000 mls @ 12 mls/hr IV TITRATE JAY; Protocol Nalbuphine HCl (Nubain) 10 mg IVPUSH Q2H PRN PRN Reason: Pain Ondansetron HCl (Zofran) 4 mg IVPUSH Q4H PRN PRN Reason: Nausea/Vomiting Sodium Chloride (Saline Flush) 10 ml FLUSH ASDIRECTED PRN PRN Reason: Keep Vein Open - Infant Interaction Infant Disposition, : in Room with Family Interaction: Holding Infant Feeding: Breastfed Infant; Nursed Well Support Person: Significant Other - Recovery Exam Fundal Tone: Firm Fundal Level: 2 Fingerbreadths Below Umbilicus Fundal Placement: Midline Lochia Amount: Scant Lochia Color: Rubra/Red Perineum Description: Intact, Minimal Bruising/Swelling Episiotomy/Laceration: None Bladder Status: Voiding Urinary Elimination: Voided - Exam General: Alert, Oriented, Cooperative Lungs: Clear to Auscultation, Normal Respiratory Effort Cardiovascular: Regular Rate, Regular Rhythm GI/Abdominal Exam: Soft, Non-Tender Extremities: Normal Inspection Skin: Warm, Dry, Intact - Problem List & Annotations (1) 40 weeks gestation of SNOMED Code(s): 73220022 Code(s): Z3A.40 - 40 WEEKS GESTATION OF Status: Acute Current Visit: Yes (2) Normal labor SNOMED Code(s): 34041456 Code(s): O80 - ENCOUNTER FOR FULL-TERM UNCOMPLICATED DELIVERY; Z37.9 - OUTCOME OF DELIVERY, UNSPECIFIED Status: Acute Current Visit: Yes (3) Rh negative state in antepartum period SNOMED Code(s): 545445549 Code(s): O09.899 - SUPERVISION OF OTHER HIGH RISK PREGNANCIES, UNSP TRIMESTER Status: Acute Current Visit: No (4) Vaginal delivery SNOMED Code(s): 651405552 Code(s): O80 - ENCOUNTER FOR FULL-TERM UNCOMPLICATED DELIVERY Status: Acute Current Visit: No - Problem List Review Problem List Initiated/Reviewed/Updated: Yes - My Orders Last 24 Hours: My Active Orders 05/05/20 17:02 Heat Therapy [OM.PC] PRN - Assessment Assessment:: PPD#2 - Plan Plan:: * Routine cares * Breast feeding * Continue home Zoloft * Discharge home today
--- NOTE | 2020-05-06 06:57 | PCM.DCSUM1 ---
Discharge Summary - Discharge Data Discharge Date: 05/06/20 Discharge Disposition: Home, Self-Care 01 Condition: Good - Referral to Home Health Primary Care Physician: Tonia Cisneros MD - Discharge Diagnosis/Problem(s) (1) 40 weeks gestation of SNOMED Code(s): 79933174 ICD Code: Z3A.40 - 40 WEEKS GESTATION OF Status: Acute Current Visit: Yes (2) Normal labor SNOMED Code(s): 47605314 ICD Code: O80 - ENCOUNTER FOR FULL-TERM UNCOMPLICATED DELIVERY; Z37.9 - OUTCOME OF DELIVERY, UNSPECIFIED Status: Acute Current Visit: Yes (3) Rh negative state in antepartum period SNOMED Code(s): 399111428 ICD Code: O09.899 - SUPERVISION OF OTHER HIGH RISK PREGNANCIES, UNSP TRIMESTER Status: Acute Current Visit: No (4) Vaginal delivery SNOMED Code(s): 581781520 ICD Code: O80 - ENCOUNTER FOR FULL-TERM UNCOMPLICATED DELIVERY Status: Acute Current Visit: No - Patient Summary/Data Complications: None Consults: None Recommended Follow-up Testing/Procedures: Follow up in 3 weeks for check Hospital Course: 25 y/o at 40 0/7 wks who presented for IOL, but was actually in early labor on arrival. Progressed well and underwent AROM at 8 cm. Underwent an uncomplicated . See delivery note. did well and was discharged home on PPD#2 - Patient Instructions Diet: Regular Diet as Tolerated Activity: As Tolerated Activity, Other: Pelvic rest for 6 weeks Driving: May Drive Today Showering/Bathing: May Shower Showering/Bathing, Other: May Bathe Notify Provider of: Fever, Increased Pain, Swelling and Redness, Drainage, Nausea and/or Vomiting - Discharge Plan *PRESCRIPTION DRUG MONITORING PROGRAM REVIEWED*: No *COPY OF PRESCRIPTION DRUG MONITORING REPORT IN PATIENT RICHARD: No Home Medications: Home Meds Vit Calc,Iron,Folic [ Vitamins] 1 tab PO DAILY 10/25/17 [History] Docusate Sodium [Colace] 100 mg PO BID PRN cap 05/04/20 [Rx] Ibuprofen [Motrin] 600 mg PO Q6H PRN tablet 05/04/20 [Rx] Patient Handouts: Breast Pumping Tips, and Self-Care, Care After Vaginal Delivery Referrals: Tonia Cisneros MD [Primary Care Provider] - (3 weeks for check - can be telehealth appt) - Discharge Summary/Plan Comment DC Time >30 min.: No - Patient Data Vitals - Most Recent: Last Vital Signs Temp 36.4 C 05/06/20 03:58 Pulse 83 05/06/20 03:58 Resp 16 05/06/20 03:58 BP 115/65 05/06/20 03:58 Pulse Ox 96 05/06/20 03:58 Weight - Most Recent: 97.522 kg I&O - Last 24 hours: Intake & Output 05/05/20 05/05/20 05/06/20 14:59 22:59 06:59 Intake Total 240 480 Balance 240 480 Med Orders - Current: Current Medications Acetaminophen (Tylenol) 650 mg PO Q4H PRN PRN Reason: mild pain or fever Last Admin: 05/05/20 18:24 Dose: 650 mg Documented by: Benzocaine/Menthol (Dermoplast Pain Relief [place]) 0 gm TOP ASDIRECTED PRN PRN Reason: Perineal Comfort Measure Docusate Sodium (Colace) 100 mg PO BID PRN PRN Reason: Constipation Last Admin: 05/05/20 20:08 Dose: 100 mg Documented by: Ibuprofen (Motrin) 600 mg PO Q6H PRN PRN Reason: Mild pain or fever Last Admin: 05/05/20 20:51 Dose: 600 mg Documented by: [place] Cutler ([facility]) 1 pad TOP ASDIRECTED PRN PRN Reason: Perineal Comfort Measure Discontinued Medications Bupivacaine HCl (Sensorcaine-Mpf 0.25%) 10 ml .ROUTE .STK-MED ONE Stop: 05/04/20 00:01 Diphenhydramine HCl (Benadryl) 25 mg IVPUSH Q6H PRN PRN Reason: pruritis Ephedrine Sulfate (Ephedrine Sulfate) 5 mg IVPUSH ASDIRECTED PRN PRN Reason: Hypotension Fentanyl (Sublimaze) 100 mcg EPIDUR Q3H PRN PRN Reason: Pain Last Admin: 05/04/20 08:02 Dose: 100 mcg Documented by: Fentanyl/Bupivacaine HCl (Fentanyl/Bupivacaine/Ns 2 Mcg-0.125% 100 Ml) 100 ml EPIDUR ASDIRECTED PRN PRN Reason: Pain Last Admin: 05/04/20 08:00 Dose: 100 ml Documented by: Oxytocin/Lactated Ringer's (Pitocin In Lr 10 Units/1,000 Ml) 10 unit in 1,000 mls @ 12 mls/hr IV TITRATE JAY; Protocol Last Admin: 05/04/20 14:30 Dose: 2 munits/min, 12 mls/hr Documented by: Oxytocin/Lactated Ringer's (Pitocin In Lr 10 Units/1,000 Ml) 10 unit in 1,000 mls @ 500 mls/hr IV .CONTINUOUS JAY Lactated Ringer's (Ringers, Lactated) 1,000 mls @ 40 mls/hr IV ASDIRECTED JAY Last Admin: 05/04/20 10:35 Dose: 999 mls/hr Documented by: Oxytocin/Lactated Ringer's (Pitocin In Lr 10 Units/1,000 Ml) 10 unit in 1,000 mls @ 12 mls/hr IV TITRATE JAY; Protocol Nalbuphine HCl (Nubain) 10 mg IVPUSH Q2H PRN PRN Reason: Pain Ondansetron HCl (Zofran) 4 mg IVPUSH Q4H PRN PRN Reason: Nausea/Vomiting Sodium Chloride (Saline Flush) 10 ml FLUSH ASDIRECTED PRN PRN Reason: Keep Vein Open
[2020-05-06] MEDS: Ibuprofen 600 MG Tab PO PRN (08:08)
[2020-05-06 09:54] VITALS: BP 110/53; PULSE 74
== END 2020-05-06 09:25 | disposition home or self-care (01) | DRG 807 ==
LOC: JD.OBCHECK 06:46 → JD.OB 06:47 → JD.OBCHECK 06:48 → JD.OB 06:49 → OBSVTOIN 16:46 → JD.OB 16:47
PROVIDERS: ADMIT Obstetrics & Gynecology; ATTEND Obstetrics & Gynecology
PROC: 10907ZC Drainage of Amniotic Fluid, Therapeutic from Products of Conception, Via Natural or Artificial Opening (ICD-10-PCS; principal; 2020-05-04)
PROC: 3E0334Z Introduction of Serum, Toxoid and Vaccine into Peripheral Vein, Percutaneous Approach (ICD-10-PCS; principal; 2020-05-04)
PROC: 10E0XZZ Delivery of Products of Conception, External Approach (ICD-10-PCS; principal; 2020-05-04)
PROC: 3E0R3BZ Introduction of Anesthetic Agent into Spinal Canal, Percutaneous Approach (ICD-10-PCS; principal; 2020-05-04)
DX: O48.0 Post-term pregnancy (principal); Z37.0 Single live birth; F41.9 Anxiety disorder, unspecified; F32.9 Major depressive disorder, single episode, unspecified; O99.344 Other mental disorders complicating childbirth; O69.81X0 Labor and delivery complicated by cord around neck, without compression, not applicable or unspecified; Z3A.40 40 weeks gestation of pregnancy; Z67.21 Type B blood, Rh negative; Z11.59 Encounter for screening for other viral diseases
CPT/HCPCS: 01967; 36415; 51702; 59025; 59409; 80306; 85027; 85461; 86592; 86850; 86870; 86900; 86901; A9270-GY; J2590; J2790; J3010; J3490; J7120; U0002